=== PATIENT | male | born 1975 | race Caucasian/White ===

== ENCOUNTER → 2021-05-13 | Outpatient (CLI) | payer OTHER ==
--- NOTE | 2021-05-13 15:52 | Diagnostic Imaging Report ---
PROCEDURE: CT abdomen and pelvis without contrast. TECHNIQUE: Multiple contiguous axial images were obtained through the abdomen and pelvis without the use of intravenous contrast. Auto Exposure Controls were utilized during the CT exam to meet ALARA standards for radiation dose reduction. INDICATION: Cirrhosis and ascites. COMPARISON: No prior studies are available for comparison. There is a small left pleural effusion. The liver demonstrates a nodular contour suggestive of cirrhosis. There is significant heterogeneity to the liver parenchyma. There is an area of low density in the anterior portion of the right lobe. Underlying mass cannot be entirely excluded. Gallbladder is unremarkable. There is no biliary ductal dilatation. The pancreas is unremarkable. Spleen is mildly enlarged at 14.4 cm. No adrenal mass is detected. Kidneys are unremarkable. Aorta is nonaneurysmal. There is perihepatic and perisplenic ascites. There appears to be some infiltration of the mesentery. There are shoddy lymph nodes in the central retroperitoneum. Large pelvic ascites is noted. Bladder is decompressed. Prostate is unremarkable. There is a fat-containing right inguinal hernia. Fluid extends into an umbilical hernia as well. IMPRESSION: 1. Small left pleural effusion. 2. Findings consistent with cirrhosis and probable portal hypertension with moderate to large abdominal and pelvic ascites. There is significant heterogeneity to the liver parenchyma, an underlying liver mass cannot be entirely excluded. Liver MRI would be useful for further evaluation. Fluid containing umbilical hernia. Fat-containing right inguinal hernia. Dictated by: Dictated on workstation # [id number]
== END ==
LOC: RAD 14:45
PROVIDERS: ATTEND Internal Medicine
DX: J90 Pleural effusion, not elsewhere classified (principal); K70.31 Alcoholic cirrhosis of liver with ascites
CPT/HCPCS: 74176

== ENCOUNTER → 2021-05-29 | Outpatient (CLI) | payer OTHER ==
[~2021-05-29] MED LIST: CHLO25CA10 PO; GADOBUTROL 15 MMOL/15 ML (GADAVIST) VIAL IV ONE; NICO-685 TD; OXYC10TA7 PO
--- NOTE | 2021-05-29 17:08 | Diagnostic Imaging Report ---
EXAMINATION: MRI of the abdomen with and without contrast. TECHNIQUE: Multiplanar, multisequence MR images of the abdomen were obtained with and without intravenous contrast. HISTORY: ABN CT OF LIVER COMPARISON: None available. FINDINGS: Liver surface is nodular consistent with cirrhosis. No arterially enhancing lesions are seen to indicate hepatocellular carcinoma. Portal vein is patent. There is no hepatic steatosis. The gallbladder is normal. There is no biliary ductal dilation. Pancreas is normal. The pancreatic duct is normal. Spleen is mildly enlarged. There are collaterals in the left upper quadrant. Adrenal glands are normal. There is a moderate amount of ascites. The kidneys are normal. There is no hydronephrosis. Visualized bowel is normal. No lymphadenopathy is seen. Lung bases are clear. No osseous lesions are seen. IMPRESSION: 1. Cirrhotic liver without suspicious lesion. 2. Portal hypertension as evidenced by moderate ascites and mild splenomegaly. Dictated by: Dictated on workstation # [id number]
== END ==
LOC: RAD 14:45
PROVIDERS: ATTEND Internal Medicine
DX: K74.60 Unspecified cirrhosis of liver (principal); K76.6 Portal hypertension; R16.1 Splenomegaly, not elsewhere classified
CPT/HCPCS: 74183

== ENCOUNTER 2021-05-31 12:56 | Emergency (ER) | payer OTHER ==
[~2021-05-31] VITALS: Ht 177 cm; Wt 122.0 kg
[2021-05-31] MEDS ORDERED: morphine INJ 10 MG/ML 1ML (SYR OR VIAL) IVP STA (13:02)
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
[2021-05-31] MEDS ORDERED: NS 100 ML (IVPB) BAG IV ONE (13:15)
[2021-05-31] MEDS ORDERED: HOLD METFORMIN - RECEIVED CONTRAST 20 ML VIAL IV SCH (13:15)
[2021-05-31] MEDS ORDERED: IOHEXOL 350 MG/ML 100 ML (OMNIPAQUE 350) VIAL IV ONE (13:15)
[2021-05-31 13:30] LABS: HEMATOCRIT 30 % (40-54); HEMOGLOBIN 9.9 g/dL (13.3-17.7); MEAN CORPUSCULAR HEMOGLOBIN 30 pg (25-34); MEAN CORPUSCULAR HGB CONC 34 g/dL (32-36); MEAN CORPUSCULAR VOLUME 90 fL (80-99); MEAN PLATELET VOLUME 10.2 fL (9.0-12.2); PLATELET COUNT 124 10^3/uL (130-400)
[2021-05-31 13:45] LABS: ALBUMIN 2.3 GM/DL (3.2-4.5); CHLORIDE 105 MMOL/L (98-107); POTASSIUM 3.6 MMOL/L (3.6-5.0); SODIUM 134 MMOL/L (135-145)
[2021-05-31 13:47] LABS: CALCIUM 7.2 MG/DL (8.5-10.1)
[2021-05-31 13:48] LABS: GLUCOSE 119 MG/DL (70-105); TOTAL PROTEIN 8.1 GM/DL (6.4-8.2)
[2021-05-31 13:49] LABS: CARBON DIOXIDE 19 MMOL/L (21-32)
[2021-05-31 13:50] LABS: BILIRUBIN,TOTAL 2.5 MG/DL (0.1-1.0)
[2021-05-31 13:52] LABS: ALKALINE PHOSPHATASE 165 U/L (40-136); CREATININE SERUM 0.82 MG/DL (0.60-1.30); GFR ESTIMATED > 60
[2021-05-31 13:53] LABS: BILIRUBIN,DIRECT 1.4 MG/DL (0.0-0.3); BILIRUBIN,INDIRECT 1.1 MG/DL; BUN/CREATININE RATIO 7
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
[2021-05-31 13:55] LABS: ALANINE AMINOTRANSFERASE 27 U/L (0-55)
[2021-05-31] MEDS ORDERED: HYDROmorphone 2 MG/ML VIAL (DILAUDID) IV ONE ×2 (14:00→14:45)
--- NOTE | 2021-05-31 14:10 | Diagnostic Imaging Report ---
PROCEDURE: CT head and CT cervical spine without contrast. TECHNIQUE: Multiple contiguous axial images were obtained through the brain and cervical spine without the use of intravenous contrast. Sagittal and coronal reformations through the cervical spine were then performed. Auto Exposure Controls were utilized during the CT exam to meet ALARA standards for radiation dose reduction. INDICATION: Trauma There are no prior studies available for comparison. CT HEAD: There is no mass, shift of the midline or hemorrhage to suggest an acute intracranial abnormality. The ventricles are not abnormally dilated. There is cortical atrophy. The degree of atrophy is somewhat greater than expected for patient's age but not necessarily abnormal. The bone windows show no evidence for fracture or for destructive lesion. The orbits are symmetrical and within normal limits. The sinuses are generally clear. IMPRESSION: 1. There is no evidence acute intracranial abnormality. 2. If clinical concern regarding an underlying abnormality persists, MRI would be recommended for further study. CT CERVICAL SPINE: The reconstructed parasagittal images show straightening of the cervical spine. This may be secondary to muscle spasm and/or positioning. The intervertebral spaces are fairly well maintained. There is no evidence for high-grade central stenosis. There is no fracture or acute bony abnormality appreciated. There is no sign of retropharyngeal edema. The thyroid gland is partially obscured by streak artifact. Images through the lung apices do show that there is a large pleural effusion on the left. This would correspond to finding of the chest exam performed prior to the study. IMPRESSION: 1. There is no acute bony abnormality of cervical spine. 2. There is a large left pleural effusion. Dictated by: Dictated on workstation # [id number]
--- NOTE | 2021-05-31 14:20 | Diagnostic Imaging Report ---
PROCEDURE: CT chest, abdomen, and pelvis with contrast. TECHNIQUE: Multiple contiguous axial images were obtained through the chest, abdomen, and pelvis after the administration of intravenous contrast. Auto Exposure Controls were utilized during the CT exam to meet ALARA standards for radiation dose reduction. INDICATION: Trauma. FINDINGS: There is a left basal consolidation and moderately large left pleural effusion. Right lung is clear. There is no pneumothorax. The thoracic aorta is normal caliber without evidence of dissection. There is no evidence of mediastinal hematoma. No pathologically enlarged adenopathy in the chest. There is hepatomegaly with fatty infiltration of the liver. There is moderate abdominal ascites. Spleen is grossly normal. Aorta is nonaneurysmal. Kidneys are normal. The aorta is nonaneurysmal. The bowel gas pattern is nonspecific. There is a fluid-containing periumbilical hernia. Bladder is normal. There is no pelvic mass, adenopathy or free fluid. The osseous structures are unremarkable. IMPRESSION: Left basal consolidation and moderate left pleural effusion. This is increased slightly since prior examination from 05/13/2021. Cirrhotic appearance of liver with moderate abdominal ascites presumably reflecting portal venous hypertension. No other acute abnormality in the abdomen or pelvis. Dictated by: Dictated on workstation # [id number]
[2021-05-31 14:31] LABS: BILIRUBIN,URINE NEGATIVE (NEGATIVE); CLARITY,URINE CLEAR; COLOR,URINE YELLOW; GLUCOSE, URINE (UA) NEGATIVE (NEGATIVE); KETONES,URINE NEGATIVE (NEGATIVE); LEUKOCYTE ESTERASE ,URINE NEGATIVE (NEGATIVE); NITRITE,URINE NEGATIVE (NEGATIVE); PH,URINE 6.5 (5-9); PROTEIN,URINE NEGATIVE (NEGATIVE)
[2021-05-31 14:31] LABS: PROTHROMBIN TIME PATIENT 22.8 SEC (12.2-14.7)
[2021-05-31 14:37] LABS: BACTERIA,URINE NEGATIVE /HPF
[2021-05-31 14:43] LABS: AMPHETAMINE SCREEN, URINE NEGATIVE (NEGATIVE); BARBITURATE SCREEN URINE NEGATIVE (NEGATIVE); BENZODIAZEPINES SCREEN URINE NEGATIVE (NEGATIVE); CANNABINOID SCREEN, URINE NEGATIVE (NEGATIVE); COCAINE SCREEN URINE NEGATIVE (NEGATIVE); METHADONE STAT NEGATIVE (NEGATIVE); METHAMPHETAMINE SCREEN URINE S NEGATIVE (NEGATIVE); OPIATE SCREEN URINE POSITIVE (NEGATIVE); OXYCODONE STAT NEGATIVE (NEGATIVE); PROPOXYPHENE STAT NEGATIVE (NEGATIVE); TRICYCLIC ANTIDEPRESSANTS SCRE NEGATIVE (NEGATIVE)
[2021-05-31] MEDS ORDERED: HYDROmorphone 2 MG/ML VIAL (DILAUDID) ONE (14:48)
--- NOTE | 2021-05-31 15:19 | Diagnostic Imaging Report ---
INDICATION: Leg pain, hematoma. EXAMINATION: Right tibia and fibula at 2:51 p.m. Single AP view of the right tibia and fibula and lateral view of the proximal half of the right tibia to fibula were obtained. COMPARISON: There is no prior study available for comparison. FINDINGS: The lateral view does show that there is soft tissue edema along the anterior aspect of the proximal tibia. This area measures approximately 1.9 x 6.1 cm in maximum AP and longitudinal dimensions. This may be secondary to hematoma formation given the patient's history of recent trauma. If further imaging is desired, then ultrasound would be recommended. There is no fracture or acute bony I identified. There is a well-circumscribed bony excrescence along the anterior aspect of the proximal tibia. This may be a sequela of prior trauma. There is moderate degenerative disease of the knee and ankle joints. IMPRESSION: 1. There is soft tissue edema along the anterior aspect of the proximal tibia. There may be an underlying hematoma in this area. Additional considerations as above. 2. There is no acute bony abnormality noted. Dictated by: Dictated on workstation # [id number]
[2021-05-31] MEDS ORDERED: CHLO25CA10 PO (15:32)
[2021-05-31] MEDS ORDERED: OXYC10TA7 PO (15:32)
[2021-05-31] MEDS ORDERED: NICO-685 TD (15:34)
[2021-05-31 15:40] VITALS: BP 111/79
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
== END 2021-05-31 15:40 | disposition home or self-care (01) ==
LOC: EDUNIT# 12:56 → ER 12:57
DX: S22.39XA Fracture of one rib, unspecified side, initial encounter for closed fracture (principal); F10.129 Alcohol abuse with intoxication, unspecified; J90 Pleural effusion, not elsewhere classified; R18.8 Other ascites; J44.9 Chronic obstructive pulmonary disease, unspecified; V89.2XXA Person injured in unspecified motor-vehicle accident, traffic, initial encounter
CPT/HCPCS: 70450; 71045; 71260; 72125; 73590; 74177; 80048; 80076; 80306; 81000; 85027; 85610; 99285; G0480; 36415; 80320

== ENCOUNTER 2021-08-24 18:11 | Inpatient (IN) | payer OTHER ==
[~2021-08-24] VITALS: Ht 178 cm; Wt 120.2 kg
[~2021-08-24 18:11] MED LIST changes: -GADOBUTROL 15 MMOL/15 ML (GADAVIST) VIAL IV ONE
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
[2021-08-24 18:41] LABS: ABG OXYGEN SATURATION 95 % (94-100); ABG PCO2 29 MMHG (35-45); ABG PO2 75 MMHG (79-93); ABG TCO2 23.6 MMOL/L (21.0-31.0); ALLENS TEST YES-POS; INSPIRED O2 ROOM AIR; PATIENT TEMP 37.5; VENTILATOR NO
[2021-08-24 19:11] LABS: HEMOGLOBIN 11.1 g/dL (13.3-17.7)
[2021-08-24 19:13] LABS: BASOPHILS # (AUTO) 0.1 10^3/uL (0.0-0.1); BASOPHILS % (AUTO) 2 % (0-10); EOSINOPHILS % (AUTO) 1 % (0-10); HEMATOCRIT 31 % (40-54); LYMPHOCYTES # (AUTO) 0.8 10^3/uL (1.0-4.0); LYMPHOCYTES % (AUTO) 12 % (12-44); MEAN CORPUSCULAR HEMOGLOBIN 32 pg (25-34); MEAN CORPUSCULAR HGB CONC 36 g/dL (32-36); MEAN CORPUSCULAR VOLUME 89 fL (80-99); MEAN PLATELET VOLUME 10.9 fL (9.0-12.2); MONOCYTES # (AUTO) 0.8 10^3/uL (0.0-1.0); MONOCYTES % (AUTO) 12 % (0-12); NEUTROPHILS # (AUTO) 4.9 10^3/uL (1.8-7.8); NEUTROPHILS % (AUTO) 74 % (42-75); PLATELET COUNT 66 10^3/uL (130-400); WHITE BLOOD COUNT 6.6 10^3/uL (4.3-11.0)
[2021-08-24 19:17] LABS: ALBUMIN 2.5 GM/DL (3.2-4.5); CHLORIDE 103 MMOL/L (98-107); POTASSIUM 3.4 MMOL/L (3.6-5.0); SODIUM 136 MMOL/L (135-145)
[2021-08-24 19:18] LABS: CALCIUM 7.9 MG/DL (8.5-10.1)
[2021-08-24 19:19] LABS: AMMONIA 85 UMOL/L (11-32); AMYLASE 67 U/L (25-125)
[2021-08-24 19:20] LABS: GLUCOSE 102 MG/DL (70-105); TOTAL PROTEIN 8.9 GM/DL (6.4-8.2)
[2021-08-24 19:21] LABS: BILIRUBIN,TOTAL 7.6 MG/DL (0.1-1.0); CARBON DIOXIDE 20 MMOL/L (21-32)
[2021-08-24 19:23] LABS: ALKALINE PHOSPHATASE 265 U/L (40-136); CREATININE SERUM 0.94 MG/DL (0.60-1.30); GFR ESTIMATED 86
[2021-08-24 19:25] LABS: BUN/CREATININE RATIO 6
[2021-08-24 19:26] LABS: ALANINE AMINOTRANSFERASE 21 U/L (0-55)
[2021-08-24 19:27] LABS: CREATINE KINASE 116 U/L (30-200); LIPASE 125 U/L (8-78)
[2021-08-24 19:32] LABS: ERYTHROCYTE SEDIMENTATION RATE 50 MM/HR (0-15); FIBRIN DEGRADATION PRODUCTS 11.46 UG/ML (0.00-0.49); PROTHROMBIN TIME PATIENT 22.8 SEC (12.2-14.7)
--- NOTE | 2021-08-24 19:32 | Diagnostic Imaging Report ---
INDICATION: Worsening shortness of breath. COMPARISON: Chest x-ray performed 05/31/2021. FINDINGS: A moderate to large left pleural effusion is again noted. While substantial, it is slightly decreased in volume from the prior. There is no pneumothorax. Heart has at least mildly enlarged and there is prominence of the central pulmonary vascularity. On the left it is obscured by the pleural fluid but on the right clearly dilated. The right lung and pleural space, however, are clear. IMPRESSION: Moderate to large left pleural effusion with only portions of the left upper lobe aerated. Pleural fluid volume slightly diminished from prior; however, increased vascular congestion and likely increased cardiomegaly. Dictated by: Dictated on workstation # [id number]
[2021-08-24 19:34] LABS: CREATINE KINASE MB 2.5 NG/ML (<6.6)
[2021-08-24 19:48] LABS: TSH (THYROID ANALYZER) 1.58 UIU/ML (0.35-4.94)
[2021-08-24] MEDS: MAGNESIUM 1 GM/100 ML IVPB 100 ML IV SCH ×2 (20:48→23:59)
[2021-08-24 20:55] LABS: CLARITY,URINE CLEAR; COLOR,URINE AMBER; GLUCOSE, URINE (UA) NEGATIVE (NEGATIVE); KETONES,URINE 1+ (NEGATIVE); LEUKOCYTE ESTERASE ,URINE NEGATIVE (NEGATIVE); NITRITE,URINE POSITIVE (NEGATIVE); PROTEIN,URINE 1+ (NEGATIVE)
[2021-08-24 21:13] LABS: AMPHETAMINE SCREEN, URINE NEGATIVE (NEGATIVE); BARBITURATE SCREEN URINE NEGATIVE (NEGATIVE); BENZODIAZEPINES SCREEN URINE POSITIVE (NEGATIVE); CANNABINOID SCREEN, URINE NEGATIVE (NEGATIVE); COCAINE SCREEN URINE NEGATIVE (NEGATIVE); METHADONE STAT NEGATIVE (NEGATIVE); METHAMPHETAMINE SCREEN URINE S NEGATIVE (NEGATIVE); OPIATE SCREEN URINE POSITIVE (NEGATIVE); OXYCODONE STAT POSITIVE (NEGATIVE); PROPOXYPHENE STAT NEGATIVE (NEGATIVE); TRICYCLIC ANTIDEPRESSANTS SCRE NEGATIVE (NEGATIVE)
[2021-08-24 21:20] LABS: BILIRUBIN,URINE 3+ (NEGATIVE)
[2021-08-24 21:24] LABS: WBC,URINE 0-2 /HPF
[2021-08-24 21:25] LABS: AMORPHOUS SEDIMENT,UR RARE AMOR URATES /LPF; BACTERIA,URINE TRACE /HPF
[2021-08-24] MEDS ORDERED: CATHETER FLUSH 10 ML SYR IV PRN (22:00)
[2021-08-24] MEDS ORDERED: D5 1/2 NS 1000 ML IV SOLUTION 1,000 ML IV PRN (22:15)
[2021-08-24] MEDS ORDERED: ONDANSETRON 4 MG (ZOFRAN) ORAL DISSOLVE TAB SL PRN (22:15)
[2021-08-24] MEDS ORDERED: LORazepam INJ 2 MG/ML (ATIVAN) VIAL IM/IV PRN (22:15)
[2021-08-24] MEDS ORDERED: ONDANSETRON 4 MG/2 ML (SDV) Z0FRAN IV PRN (22:15)
[2021-08-24] MEDS ORDERED: SENNA W/DOCUSATE (SENOKOT S) TABLET PO PRN (22:15)
[2021-08-24] MEDS ORDERED: ANTACID SUSP 30 ML UDC (MYLANTA) PO PRN (22:15)
[2021-08-24] MEDS ORDERED: LORazepam INJ 2 MG/ML (ATIVAN) VIAL IV PRN (22:15)
[2021-08-24] MEDS ORDERED: D5 1/2 NS W/KCL 20 MEQ/L 1,000 ML IV SCH (22:15)
[2021-08-24] MEDS ORDERED: 1/2 NS IV SOLUTION 1,000 ML IV PRN (22:15)
[2021-08-24 22:27] VITALS: BP 148/81
[2021-08-24] MEDS: LACTULOSE SYRUP 10GM/15ML (ENULOSE) 30ML UDC PO SCH (22:39)
[2021-08-24] MEDS: CATHETER FLUSH 10 ML SYR IV SCH (22:40)
[2021-08-24] MEDS ORDERED: MAGNESIUM 1 GM/100 ML IVPB 100 ML IV ONE (23:51)
[2021-08-25] VITALS (7 sets, daily range): BP systolic 105–119; BP diastolic 55–76
[2021-08-25] MEDS: LORazepam 1 MG (ATIVAN) TAB PO PRN ×4 (01:12→21:10)
[2021-08-25] MEDS ORDERED: NICOTINE 21 MG (NICODERM) PATCH TD ONE (01:45)
[2021-08-25] MEDS: IBUPROFEN TABLET 200 MG TAB PO PRN ×2 (01:58→06:29)
[2021-08-25 05:49] LABS: HEMATOCRIT 26 % (40-54); HEMOGLOBIN 9.1 g/dL (13.3-17.7); MEAN CORPUSCULAR HGB CONC 36 g/dL (32-36)
[2021-08-25 05:51] LABS: BASOPHILS # (AUTO) 0.1 10^3/uL (0.0-0.1); BASOPHILS % (AUTO) 1 % (0-10); EOSINOPHILS # (AUTO) 0.1 10^3/uL (0.0-0.3); EOSINOPHILS % (AUTO) 2 % (0-10); LYMPHOCYTES # (AUTO) 1.2 10^3/uL (1.0-4.0); LYMPHOCYTES % (AUTO) 18 % (12-44); MEAN CORPUSCULAR HEMOGLOBIN 32 pg (25-34); MEAN CORPUSCULAR VOLUME 90 fL (80-99); MONOCYTES % (AUTO) 15 % (0-12); NEUTROPHILS # (AUTO) 4.1 10^3/uL (1.8-7.8); NEUTROPHILS % (AUTO) 63 % (42-75); PLATELET COUNT 59 10^3/uL (130-400); WHITE BLOOD COUNT 6.4 10^3/uL (4.3-11.0)
[2021-08-25 06:01] LABS: POTASSIUM 3.2 MMOL/L (3.6-5.0)
[2021-08-25 06:03] LABS: CALCIUM 7.5 MG/DL (8.5-10.1)
[2021-08-25 06:07] LABS: CREATININE SERUM 0.87 MG/DL (0.60-1.30)
[2021-08-25 06:09] LABS: MAGNESIUM 1.2 MG/DL (1.6-2.4)
[2021-08-25] MEDS: CATHETER FLUSH 10 ML SYR IV SCH ×3 (06:59→22:25)
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
[2021-08-25] MEDS: LACTULOSE SYRUP 10GM/15ML (ENULOSE) 30ML UDC PO SCH ×4 (08:51→19:41)
[2021-08-25] MEDS: THIAMINE INJECTION 100 MG, FOLIC ACID INJECTION 1 MG, MAGNESIUM SULFATE 2 GM, VITAMIN M... IV SCH ×5 (08:59)
[2021-08-25 10:04] LABS: BILIRUBIN,DIRECT 4.2 MG/DL (0.0-0.3); BILIRUBIN,INDIRECT 2.3 MG/DL; BILIRUBIN,TOTAL 6.5 MG/DL (0.1-1.0); TOTAL PROTEIN 7.2 GM/DL (6.4-8.2)
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
[2021-08-25] MEDS: oxyCODONE/APAP 5/325MG (PERCOCET 5) TABLET PO PRN ×2 (13:40)
--- NOTE | 2021-08-25 13:41 | Diagnostic Imaging Report ---
EXAMINATION: US Abdomen limited. TECHNIQUE: Focused ultrasound was performed in all four quadrants to evaluate for ascites. REASON FOR EXAM: Ascites. COMPARISON: 05/31/2021. FINDINGS: Cbkzjfoa-tl-dptty volume of ascites is seen throughout the abdomen. A site was marked over the left lower quadrant for paracentesis. IMPRESSION: 1. Rtkqrzvv-ke-obnol volume of ascites throughout the abdomen and pelvis. Dictated by: Dictated on workstation # [id number]
--- NOTE | 2021-08-25 14:13 | Diagnostic Imaging Report ---
INDICATION: Pleural effusion. FINDINGS: Sonographic interrogation of the posterior left chest was performed. There is a large left pleural effusion. Marking was provided prior to thoracentesis. IMPRESSION: Large left pleural effusion. Dictated by: Dictated on workstation # [id number]
[2021-08-25] MEDS ORDERED: OXYC5TAB PO (14:15)
[2021-08-25] MEDS ORDERED: LISI20TA26 PO (14:15)
[2021-08-25] MEDS ORDERED: POTA10TA36 PO (14:15)
[2021-08-25] MEDS ORDERED: SPIR100T PO (14:15)
[2021-08-25] MEDS ORDERED: FURO40TA4 PO (14:15)
[2021-08-25] MEDS ORDERED: IBUP-30 PO (14:16)
[2021-08-25] MEDS ORDERED: OMEP20CA18 PO (14:16)
[2021-08-25] MEDS ORDERED: TEMA15CA PO (14:16)
--- NOTE | 2021-08-25 15:43 | Progress Note-Post Operative ---
Post-Operative Progess Note Surgeon (s)/Mixing Technician (s) Surgeon CHRISTINE WONG DO Mixing Technician: none Pre-Operative Diagnosis Left sided pleural effusion Post-Operative Diagnosis same Procedure & Operative Findings Date of Procedure 08/25/21 Procedure Performed/Findings thoracentesis Anesthesia Type Local lidocaine Estimated Blood Loss Estimated blood loss (mL): scant Specimens/Packing Specimens Removed 2250 ml Packin CHRISTINE WONG DO Aug 25, 2021 15:43
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
--- NOTE | 2021-08-25 18:26 | OPERATIVE REPORT ---
DATE OF SERVICE: 08/25/2021 PREOPERATIVE DIAGNOSIS: Left-sided pleural effusion. POSTOPERATIVE DIAGNOSIS: Left-sided pleural effusion. PROCEDURE PERFORMED: Thoracentesis. SURGEON: Jourdan Rai DO. TABBER: None. ANESTHESIA: Local lidocaine. BLOOD LOSS: Scant. FLUIDS: None. SPECIMEN: 2250 mL of pleural effusion. INDICATION FOR PROCEDURE: The patient is a 46-year-old male, who has a pleural effusion as well as he has some ascites. He has previously had this drained. He has been having some shortness of breath and requiring oxygen to keep his pulse ox up needing a thoracentesis. FINDINGS: The patient had a thoracentesis performed left side, which had been marked by the ultrasound. A timeout was performed and everyone agreed with the left side we are doing. PROCEDURE NOTE: After informed consent was obtained, the patient was in the bed in his room. He laid over a table on a pillow. He was then sterilely prepped and draped in a normal fashion. Local lidocaine was used to infiltrate the skin right at the marjan where ultrasound had placed. I then made a stab incision with a #11 blade and then carefully advanced the safety needle along this line directly into the lung just over the top of the rib, gently entered the pleural cavity, got a good flush of fluid and then advanced the catheter, removed the needle and I went in easily. The patient had almost no pain and we then hooked up to vacutainer and got out 2250 mL of serosanguineous fluid. The catheter was removed. Dressing was placed. The patient tolerated the procedure. Sponge, instrument and needle count correct at the end of the case. We will get a chest x-ray tomorrow. The patient stated that was already breathing better at the end of the case. Job ID: [id number] DocumentID: [id number] Dictated Date: 08/25/2021 15:49:08 Rf Manager Date: 08/25/2021 18:26:06 Dictated By: JOURDAN RAI DO
[2021-08-25] MEDS ORDERED: TEMAZEPAM 15 MG (RESTORIL) CAP PO PRN (20:45)
[2021-08-25] MEDS ORDERED: PANTOPRAZOLE 20 MG TABLET (PROTONIX) PO PRN (21:30)
[2021-08-25] MEDS ORDERED: NICOTINE 21 MG (NICODERM) PATCH TD SCH ×2 (22:00)
[2021-08-26 04:47] VITALS: BP 123/72
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
[2021-08-26] MEDS: CATHETER FLUSH 10 ML SYR IV SCH ×2 (05:40→13:03)
[2021-08-26 06:07] LABS: BASOPHILS # (AUTO) 0.1 10^3/uL (0.0-0.1); HEMOGLOBIN 9.2 g/dL (13.3-17.7)
[2021-08-26 06:10] LABS: BASOPHILS % (AUTO) 2 % (0-10); EOSINOPHILS # (AUTO) 0.1 10^3/uL (0.0-0.3); EOSINOPHILS % (AUTO) 2 % (0-10); HEMATOCRIT 26 % (40-54); LYMPHOCYTES % (AUTO) 17 % (12-44); MEAN CORPUSCULAR HEMOGLOBIN 32 pg (25-34); MEAN CORPUSCULAR HGB CONC 35 g/dL (32-36); MEAN CORPUSCULAR VOLUME 91 fL (80-99); MEAN PLATELET VOLUME 10.2 fL (9.0-12.2); MONOCYTES # (AUTO) 0.8 10^3/uL (0.0-1.0); MONOCYTES % (AUTO) 13 % (0-12); NEUTROPHILS # (AUTO) 3.9 10^3/uL (1.8-7.8); NEUTROPHILS % (AUTO) 66 % (42-75); PLATELET COUNT 57 10^3/uL (130-400)
[2021-08-26 06:23] LABS: ALBUMIN 1.8 GM/DL (3.2-4.5); POTASSIUM 3.4 MMOL/L (3.6-5.0)
[2021-08-26 06:24] LABS: CALCIUM 7.5 MG/DL (8.5-10.1)
[2021-08-26 06:25] LABS: TOTAL PROTEIN 6.7 GM/DL (6.4-8.2)
[2021-08-26 06:27] LABS: BILIRUBIN,TOTAL 5.9 MG/DL (0.1-1.0)
[2021-08-26 06:29] LABS: CREATININE SERUM 0.85 MG/DL (0.60-1.30)
[2021-08-26] MEDS ORDERED: KCL 10 MEQ TAB (MICRO K) PO SCH (08:00)
--- NOTE | 2021-08-26 08:36 | Progress Note - Surgery ---
CHARLA JUNIOR 08/26/21 0836: Subjective Date Seen by a Provider: Aug 26, 2021 Time Seen by a Provider: 08:31 Subjective/Events-last exam PT had a thoracentesis yesterday d/t a L pleural effusion. Since the procedure he reports improved shortness of breath. He denies pain at the thoracentesis site. He denies fever, nausea or vomiting. He denies change in the size of his abdomen, which is distended secondary to ascites. The patient denies abdominal pain. Review of Systems General: No Night Sweats, No Malaise HEENT: No Head Aches, No Visual Changes Pulmonary: Cough (smokers cough); No Pleuritic Chest Pain Cardiovascular: No: Chest Pain, Palpitations Gastrointestinal: No: Nausea, Vomiting Genitourinary: No Dysuria, No Frequency Musculoskeletal: No: neck pain, arm pain Neurological: Weakness (in feet); No: Numbness Focused Exam Lactate Level 08/24/21 19:00: Lactic Acid Level 2.40*H Objective Exam Vital Signs Date Time Temp Pulse Resp B/P (MAP) Pulse Ox O2 Delivery O2 Flow Rate FiO2 08/26/21 07:38 96 Room Air 08/26/21 04:47 36.5 102 16 123/72 (89) 99 NIV CPAP 08/25/21 23:59 37.4 98 16 112/76 (88) 96 Room Air 08/25/21 20:59 98 Room Air 08/25/21 20:00 36.7 101 18 105/62 (76) 96 Room Air 08/25/21 16:00 36.8 97 20 118/67 (84) 96 Room Air 08/25/21 12:00 37.5 111 20 119/75 (90) 95 Nasal Cannula 4.00 08/25/21 09:20 Nasal Cannula 3.00 I & O 08/26/21 07:00 Intake Total 1440 ml Balance 1440 ml Capillary Refill : Less Than 3 Seconds General Appearance: No Apparent Distress, Chronically ill, Obese HEENT: Normal ENT Inspection, Pharynx Normal, Moist Mucous Membranes, Scleral Icterus (L), Scleral Icterus (R) Neck: Full Range of Motion, Normal Inspection, Non Tender Respiratory: Chest Non Tender, Lungs Clear, No Accessory Muscle Use, No Respiratory Distress, Decreased Breath Sounds Cardiovascular: Regular Rate, Rhythm, No Edema, No Gallop, No JVD, No Murmur, Normal Peripheral Pulses Peripheral Pulses: 3+ Radial Pulses (R), 3+ Radial Pulses (L) Gastrointestinal: non tender, soft, no organomegaly, no pulsatile mass, distended (abdomen was moderately distended secondary to ascites ), hernia (umbilical hernia ) Extremity: Normal Capillary Refill, Normal Inspection, Normal Range of Motion, Non Tender, No Calf Tenderness, No Pedal Edema Neurologic/Psychiatric: Alert, Oriented x3, No Motor/Sensory Deficits, Normal Mood/Affect Skin: Normal Color, Warm/Dry Lymphatic: No Adenopathy Results Lab Laboratory Tests 08/26/21 05:50: White Blood Count 6.0, Red Blood Count 2.88L, Hemoglobin 9.2L, Hematocrit 26L, Mean Corpuscular Volume 91, Mean Corpuscular Hemoglobin 32, Mean Corpuscular Hemoglobin Concent 35, Red Cell Distribution Width 20.8H, Platelet Count 57L, Mean Platelet Volume 10.2, Immature Granulocyte % (Auto) 0, Neutrophils (%) (Auto) 66, Lymphocytes (%) (Auto) 17, Monocytes (%) (Auto) 13H, Eosinophils (%) (Auto) 2, Basophils (%) (Auto) 2, Neutrophils # (Auto) 3.9, Lymphocytes # (Auto) 1.0, Monocytes # (Auto) 0.8, Eosinophils # (Auto) 0.1, Basophils # (Auto) 0.1, I mmature Granulocyte # (Auto) 0.0, Percent Immature Platelet Fraction 3.1, Sodium Level 135, Potassium Level 3.4L, Chloride Level 105, Carbon Dioxide Level 23, Anion Gap 7, Blood Urea Nitrogen 8, Creatinine 0.85, Estimat Glomerular Filt ration Rate 97, BUN/Creatinine Ratio 9, Glucose Level 100, Calcium Level 7.5L, Corrected Calcium 9.3, Total Bilirubin 5.9H, Aspartate Amino Transf (AST/SGOT) 69H, Alanine Aminotransferase (ALT/SGPT) 15, Alkaline Phosphatase 177H, Total Protein 6.7, Albumin 1.8L Microbiology 08/24/21 Blood Culture - Preliminary, Resulted No growth Assessment/Plan Assessment/Plan Assessment/Plan Assessment: Pleural effusion causing SOB Ascites secondary to cirrhosis of the liver. CHF Jaundice Plan: Continue to follow patients respiratory status. We will repeat chest x-ray to follow his L pleural effusion. At this time we will not consider a paracentesis for his ascites. He is Rxd diuretic therapy, which he is not currently taking at the hospital reportedly. I suggested restarting his diuretic medication, or possibly increasing the dose under the direction of his primary doctor. He understands diuretic therapy will help control his ascites. Encouraged ICS therapy and ambulation. JOURDAN RAI 08/26/21 0915: Subjective Time Seen by a Provider: 08:42 Subjective/Events-last exam Pt seen and examined; sitting in bed, eating breakfast and on not on O2 breathing normally. Review of Systems General: No Night Sweats, No Malaise Pulmonary: Cough (smokers cough); No Pleuritic Chest Pain Cardiovascular: No: Chest Pain, Palpitations Gastrointestinal: No: Nausea, Vomiting Objective Exam General Appearance: No Apparent Distress, Obese HEENT: Moist Mucous Membranes, Scleral Icterus (L), Scleral Icterus (R) Respiratory: Lungs Clear, No Accessory Muscle Use, No Respiratory Distress, Decreased Breath Sounds (left base only) Cardiovascular: Regular Rate, Rhythm, No Murmur Gastrointestinal: non tender, soft, no organomegaly, distended (abdomen was moderately distended secondary to ascites ), hernia (umbilical hernia ) Assessment/Plan Assessment/Plan Assessment/Plan Assessment: Pleural effusion causing SOB Ascites secondary to cirrhosis of the liver. CHF Jaundice Plan: Continue to follow patients respiratory status. We will repeat chest x-ray to follow his L pleural effusion. At this time we will not consider a paracentesis for his ascites. He is Rxd diuretic therapy, which he is not currently taking at the hospital reportedly. I suggested restarting his diuretic medication, or possibly increasing the dose under the direction of his primary doctor. He understands diuretic therapy will help control his ascites. Encouraged ICS therapy and ambulation. Supervisory-Addendum Brief Verification & Attestation Participated in pt care: history, MDM, physical Personally performed: exam, history, MDM, supervision of care Care discussed with: Medical Student Procedures: n/a Verification and Attestation of Medical Student E/M Service A medical student performed and documented this service. I then reviewed and verified all information documented by the medical student and made mod ifications to such information, when appropriate. I personally performed a physical exam, medical decision making and then discussed any differences between the notes and made revisions as necessary to create one note. Jourdan Rai , 08/26/21 , 09:15 CHARLA JUNIOR Aug 26, 2021 08:36 JOURDAN RAI DO Aug 26, 2021 09:15
[2021-08-26 08:41] VITALS: BP 108/66
[2021-08-26] MEDS ORDERED: SPIRONOLACTONE 100 MG (ALDACTONE) TABLET PO SCH (09:00)
[2021-08-26] MEDS ORDERED: lisINopril 20 MG (PRINIVIL) TABLET PO SCH (09:00)
[2021-08-26] MEDS ORDERED: FUROSEMIDE 40 MG (LASIX) TAB PO SCH (09:00)
[2021-08-26] MEDS: LACTULOSE SYRUP 10GM/15ML (ENULOSE) 30ML UDC PO SCH ×2 (09:13→13:03)
[2021-08-26] MEDS: THIAMINE INJECTION 100 MG, FOLIC ACID INJECTION 1 MG, MAGNESIUM SULFATE 2 GM, VITAMIN M... IV SCH ×5 (09:13)
[2021-08-26] MEDS: IBUPROFEN TABLET 200 MG TAB PO PRN (09:21)
--- NOTE | 2021-08-26 10:48 | Diagnostic Imaging Report ---
INDICATION: Post thoracentesis. Frontal chest obtained at 09:30 a.m. and compared 08/24/2021. FINDINGS: There is cardiomegaly. There is central vascular congestion. There is significant improvement in left pleural effusion compared to the prior study with minimal residual. There is no pneumothorax following thoracentesis. IMPRESSION: Significant improvement in left pleural effusion compared to the prior study, with minimal residual. There is no pneumothorax following thoracentesis. Central vascular congestion again noted. Dictated by: Dictated on workstation # [id number]
[2021-08-26] MEDS ORDERED: LEVO750T39 PO (10:58)
[2021-08-26] MEDS ORDERED: POTA10TA36 PO (10:58)
--- NOTE | 2021-08-26 10:58 | Discharge Summary ---
Discharge Summary Hospital Course Was the Problem List Reviewed?: Yes Problems/Dx: (1) Pleural effusion, left Status: Acute (2) Cirrhosis (3) Alcoholism (4) Ascites Status: Acute Hospital Course Date of Admission: Aug 24, 2021 at 19:45 Admission Diagnosis : Family Physician/Provider: Jaxon Jeter MD Date of Discharge: 08/26/21 Discharge Diagnosis: Left-sided pleural effusion status post thoracentesis removing 2250 cc, end-stage liver disease from alcoholism Hospital Course: Hospital course: Pt had an uneventful hospital course, when he was admitted for severe pleural effusion on the left side with ascites and in-stage liver disease due to alcoholism. He continues to drink alcohol at home. Thorocentesis performed by Dr. Rai obtained 2200 CCs. Hypoxia resolved and Pt was deemed stable for d ischarge, alcohol cessation was discussed. Labs and Pending Lab Test: Laboratory Tests 08/26/21 05:50: White Blood Count 6.0, Red Blood Count 2.88L, Hemoglobin 9.2L, Hematocrit 26L, Mean Corpuscular Volume 91, Mean Corpuscular Hemoglobin 32, Mean Corpuscular Hemoglobin Concent 35, Red Cell Distribution Width 20.8H, Platelet Count 57L, Mean Platelet Volume 10.2, Immature Granulocyte % (Auto) 0, Neutrophils (%) (Auto) 66, Lymphocytes (%) (Auto) 17, Monocytes (%) (Auto) 13H, Eosinophils (%) (Auto) 2, Basophils (%) (Auto) 2, Neutrophils # (Auto) 3.9, Lymphocytes # (Auto) 1.0, Monocytes # (Auto) 0.8, Eosinophils # (Auto) 0.1, Basophils # (Auto) 0.1, Immature Granulocyte # (Auto) 0.0, Percent Immature Platelet Fraction 3.1, Sod ium Level 135, Potassium Level 3.4L, Chloride Level 105, Carbon Dioxide Level 23, Anion Gap 7, Blood Urea Nitrogen 8, Creatinine 0.85, Estimat Glomerular Filtration Rate 97, BUN/Creatinine Ratio 9, Glucose Level 100, Calcium Level 7.5L, Corrected Calcium 9.3, Total Bilirubin 5.9H, Aspartate Amino Transf (AST/ SGOT) 69H, Alanine Aminotransferase (ALT/SGPT) 15, Alkaline Phosphatase 177H, Total Protein 6.7, Albumin 1.8L Microbiology 08/24/21 Blood Culture - Preliminary, Resulted No growth Home Meds Active Reported Advil (Ibuprofen) 200 Mg Tablet 400 Mg PO Q6H PRN Omeprazole 20 Mg Capsule.dr 20 Mg PO DAILY PRN Temazepam 15 Mg Capsule 15 Mg PO HS PRN Oxycodone HCl 5 Mg Tablet 5 Mg PO TID PRN Potassium Chloride 10 Meq Tab.er.prt 10 Meq PO DAILY Lisinopril 20 Mg Tablet 20 Mg PO DAILY Aldactone (Spironolactone) 100 Mg Tablet 100 Mg PO DAILY Furosemide 40 Mg Tablet 40 Mg PO DAILY Assessment/Pt Instructions PCP in 1 week Discharge Planning: <30 minutes discharge planning Discharge Instructions Discharge Diet: Low Sodium Diet Activity as Tolerated: Yes Discharge Physical Examination Vital Signs Vital Signs Date Time Temp Pulse Resp B/P (MAP) Pulse Ox O2 Delivery O2 Flow Rate FiO2 08/26/21 08:41 36.7 99 19 108/66 (80) 97 Room Air 08/25/21 12:00 4.00 General Appearance: No Apparent Distress, WD/WN, Chronically ill, Obese Allergies: Coded Allergies: No Known Drug Allergies (Unverified , 05/29/21) Discharge Summary Date of Admission Aug 24, 2021 at 19:45 Date of Discharge Discharge Date: Aug 26, 2021 Admission Diagnosis Assessment: Left-sided pleural effusion in need of thoracentesis Ascites Alcoholic liver disease end-stage Smoker Chronic pain Plan: Supportive care Thoracentesis Paracentesis Monitor labs Discharge Diagnosis (1) Pleural effusion, left Status: Acute (2) Cirrhosis (3) Alcoholism (4) Ascites Status: Acute REECE LUNA DO Aug 26, 2021 10:58
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
[2021-08-26 12:16] VITALS: BP 112/59
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
[2021-08-26] MEDS ORDERED: NICOTINE 21 MG (NICODERM) PATCH TD ONE (21:00)
--- NOTE | 2021-08-27 15:35 | Physician Query Clarification ---
PQ-CHF Specificity Admission Date: Aug 24, 2021 at 19:45 Discharge Date: Aug 26, 2021 at 13:44 The medical record reflects the following clinical scenario: History/Risk Factors: history CHF Clinical Findings: CHF with no further specificity Treatment: PO Lasix Question: Can you further specify the acuity &/or type of CHF per the clinical indicators above? Please document a response in the Progress Notes or Discharge Summary. 1. Acuity: Acute, Chronic or Acute on Chronic 2. Type: Systolic, Diastolic or Systolic & Diastolic 3. Unspecified: CHF cannot be further specified regarding type or acuity 4. Other, with explanation of clinical findings 5. Clinically undetermined, no explanation for clinical findings PHYSICIAN RESPONSE Acuity: Clinically undetermined Type: Clinically undetermined Please remember a lack of response to the above will prompt a phone page by [facility]/ Coding staff. In responding to this query, please exercise your independent professional judgment. The purpose of this communication is to more accurately reflect the complexity of your patients condition. The fact that a question is asked does not imply that any particular answer is desired or expected. Thank you for your timely response to this clarification. Requestors name: Shanelle THIS PHYSICIAN QUERY FORM IS A PERMANENT PART OF THE MEDICAL RECORD SHANELLE LAMBERT Aug 27, 2021 15:35 REECE LUNA DO Aug 27, 2021 20:48
== END 2021-08-26 13:44 | disposition home or self-care (01) | DRG 188 ==
LOC: EDUNIT# 18:11 → ER 18:13 → 4TH 19:45
PROVIDERS: ADMIT Internal Medicine; ATTEND Internal Medicine
PROC: 0W9B3ZZ Drainage of Left Pleural Cavity, Percutaneous Approach (ICD-10-PCS; principal; 2021-08-25)
DX: J90 Pleural effusion, not elsewhere classified (principal); K70.31 Alcoholic cirrhosis of liver with ascites; K70.40 Alcoholic hepatic failure without coma; F10.20 Alcohol dependence, uncomplicated; I50.9 Heart failure, unspecified; J44.9 Chronic obstructive pulmonary disease, unspecified; G47.33 Obstructive sleep apnea (adult) (pediatric); E83.42 Hypomagnesemia; R09.02 Hypoxemia; G89.29 Other chronic pain; M79.672 Pain in left foot; I11.0 Hypertensive heart disease with heart failure; F41.9 Anxiety disorder, unspecified; E66.9 Obesity, unspecified; E88.09 Other disorders of plasma-protein metabolism, not elsewhere classified; Z99.89 Dependence on other enabling machines and devices; F17.210 Nicotine dependence, cigarettes, uncomplicated; Z79.899 Other long term (current) drug therapy; Z79.891 Long term (current) use of opiate analgesic; Z20.822 Contact with and (suspected) exposure to COVID-19; Z68.37 Body mass index [BMI] 37.0-37.9, adult
CPT/HCPCS: 36415; 71045; 76604; 76705; 80048; 80053; 80076; 80306; 80320; 81000; 82140; 82150; 82550; 82553; 82805; 83605; 83690; 83735; 83874; 83880; 84145; 84443; 84484; 85025; 85379; 85610; 85652; 85730; 86141; 87040; 87636; 93005; 93041; 93306

== ENCOUNTER 2022-01-13 06:13 | Inpatient (IN) | payer SELFPAY ==
[~2022-01-13] VITALS: Ht 175.3 cm; Wt 112.8 kg
[2022-01-13] VITALS (9 sets, daily range): BP systolic 106–152; BP diastolic 51–92
[~2022-01-13 06:13] MED LIST changes: +FURO40TA4 PO; +IBUP-30 PO; +LEVO750T39 PO; +LISI20TA26 PO; +OMEP20CA18 PO; +OXYC5TAB PO; +POTA10TA37 PO; +SPIR100T PO; +TEMA15CA PO
[2022-01-13] MEDS ORDERED: ONDANSETRON 4 MG/2 ML (SDV) Z0FRAN ONE ×2 (06:38→12:22)
[2022-01-13 06:42] LABS: BASOPHILS % (AUTO) 0 % (0-10); MONOCYTES # (AUTO) 0.8 10^3/uL (0.0-1.0)
[2022-01-13 06:44] LABS: EOSINOPHILS % (AUTO) 0 % (0-10); HEMATOCRIT 33 % (40-54); HEMOGLOBIN 11.5 g/dL (13.3-17.7); LYMPHOCYTES # (AUTO) 0.3 10^3/uL (1.0-4.0); LYMPHOCYTES % (AUTO) 3 % (12-44); MEAN CORPUSCULAR HEMOGLOBIN 32 pg (25-34); MEAN CORPUSCULAR HGB CONC 35 g/dL (32-36); MEAN CORPUSCULAR VOLUME 90 fL (80-99); MONOCYTES % (AUTO) 7 % (0-12); NEUTROPHILS # (AUTO) 9.3 10^3/uL (1.8-7.8); NEUTROPHILS % (AUTO) 89 % (42-75); PLATELET COUNT 100 10^3/uL (130-400); WHITE BLOOD COUNT 10.5 10^3/uL (4.3-11.0)
[2022-01-13 06:45] LABS: ALBUMIN 3.1 GM/DL (3.2-4.5)
[2022-01-13] MEDS ORDERED: ONDANSETRON 4 MG/2 ML (SDV) Z0FRAN IVP ONE ×2 (06:45→08:00)
[2022-01-13 06:46] LABS: CHLORIDE 95 MMOL/L (98-107); POTASSIUM 3.3 MMOL/L (3.6-5.0); SODIUM 128 MMOL/L (135-145)
[2022-01-13 06:47] LABS: CALCIUM 9.2 MG/DL (8.5-10.1); INR 1.7 (0.8-1.4); PROTHROMBIN TIME PATIENT 20.7 SEC (12.2-14.7)
[2022-01-13 06:48] LABS: GLUCOSE 144 MG/DL (70-105); TOTAL PROTEIN 9.1 GM/DL (6.4-8.2)
[2022-01-13 06:49] LABS: CARBON DIOXIDE 21 MMOL/L (21-32)
[2022-01-13 06:50] LABS: BILIRUBIN,TOTAL 6.1 MG/DL (0.1-1.0)
[2022-01-13 06:51] LABS: ALKALINE PHOSPHATASE 204 U/L (40-136)
[2022-01-13 06:52] LABS: CREATININE SERUM 0.89 MG/DL (0.60-1.30); GFR ESTIMATED 106
[2022-01-13 06:53] LABS: BUN/CREATININE RATIO 9
[2022-01-13 06:55] LABS: ALANINE AMINOTRANSFERASE 24 U/L (0-55); MAGNESIUM 1.2 MG/DL (1.6-2.4)
[2022-01-13 06:56] LABS: LIPASE 60 U/L (8-78)
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
[2022-01-13] MEDS ORDERED: MAGNESIUM 1 GM/100 ML IVPB 100 ML IV ONE (07:15)
[2022-01-13 07:34] LABS: ANISOCYTOSIS SLIGHT; BAND NEUTROPHILS 0 %; BASOPHILS % (MANUAL) 0 %; EOSINOPHILS % (MANUAL) 0 %; LYMPHOCYTES % (MANUAL) 2 %; MONOCYTES % (MANUAL) 1 %; NEUTROPHILS % (MANUAL) 97 %
[2022-01-13] MEDS ORDERED: fentaNYL INJ 100 MCG/2 ML AMP IVP ONE ×2 (08:00→14:15)
[2022-01-13] MEDS ORDERED: FAMOTIDINE 20MG/2ML IV (PEPCID) IVP ONE (08:00)
[2022-01-13] MEDS ORDERED: morphine INJ 10 MG/ML 1ML (SYR OR VIAL) IVP STA (08:36)
--- NOTE | 2022-01-13 09:00 | Diagnostic Imaging Report ---
INDICATION: NG tube placement. Frontal chest obtained at 8:51 a.m. compared to 08/26/2021. FINDINGS: Heart is normal in size. There is a small amount of pleural fluid on the left side. Right infrahilar infiltrate and/or scarring appears similar to the prior study. There is no pneumothorax. NG tube is visualized, its tip is not well seen due to technique. Consider abdominal film for further evaluation. IMPRESSION: NG tube is visualized but its tip is not well seen, consider abdominal film for further evaluation. Small left pleural effusion. There is persistent infiltrate or scarring in the right medial base which is similar to the prior study. Dictated by: Dictated on workstation # [id number]
[2022-01-13] MEDS ORDERED: HOLD METFORMIN - RECEIVED CONTRAST 20 ML VIAL IV SCH (09:15)
[2022-01-13] MEDS ORDERED: NS 100 ML (IVPB) BAG IV ONE (09:15)
[2022-01-13] MEDS ORDERED: IOHEXOL 350 MG/ML 100 ML (OMNIPAQUE 350) VIAL IV ONE (09:15)
[2022-01-13] MEDS ORDERED: DIATRIZOATE MEGLUM/SODIUM 37% 120 ML (GASTROGRAFIN) NG ONE (09:15)
--- NOTE | 2022-01-13 11:02 | Diagnostic Imaging Report ---
EXAMINATION: CT abdomen and pelvis with intravenous contrast. TECHNIQUE: Multiple contiguous axial images were obtained through the abdomen and pelvis after the uneventful administration of intravenous contrast. All CT scans use one or more of the following dose optimizing techniques: Automated exposure control, MA and/or KvP adjustment based on patient size and exam type or iterative reconstruction. HISTORY: Abdominal pain and distention. COMPARISON: 05/31/2021. FINDINGS: Limited views of the lower thorax show a small left pleural effusion with overlying atelectasis. A gastric tube is coiled in the stomach with the tip returning into the distal esophagus. Liver is cirrhotic. There is heterogeneous enhancement of the liver, but no discrete lesion is seen. There is no biliary ductal dilation. Gallbladder is normal. Pancreas is normal. Spleen is normal. Adrenal glands are normal. Simple cyst is present in the left kidney. No suspicious renal lesions. There is no hydronephrosis. Urinary bladder is normal. There is a bowel obstruction with a transition point in the ventral abdominal hernia. There is mesenteric edema of the obstructive bowel. There is a moderate amount of ascites. There are large collaterals in the left abdomen. No free air. There is a fat-containing right inguinal hernia. No abdominal or pelvic lymphadenopathy. Aorta is normal in caliber without aneurysm. There are no suspicious osseous lesions. IMPRESSION: 1. Small bowel obstruction with transition point in the ventral abdominal hernia. There is mesenteric stranding in the obstructed segment. 2. Cirrhotic liver with portal hypertension and extensive collaterals in the left abdomen and moderate-volume ascites. Dictated by: Dictated on workstation # [id number]
--- NOTE | 2022-01-13 11:42 | History & Physical-Surgical ---
JAN SHARIF MED STUDENT 01/13/22 1142: History of Present Illness History of Present Illness Reason for visit/HPI Patient is a 47 year old male with a pmh significant for liver cirrhosis secondary to longstanding alcohol consumption and HTN who presented to the ED today with cc of abdominal pain. States the pain started around 1000 yesterday am and came on suddenly and rapidly intensified. States he took 4 shots of alcohol yesterday for the pain. States the pain is bilateral and started on both flanks and radiates around to his umbilicus. Reports taking some laxatives and pepto bismol with no relief of symptoms. Reports minimal nausea and one episode of emesis x 1. Nothing makes the pain worse. Pain medications he's received in the ED have improved the pain. Currently rates the pain at a 4/10. States he tried to go to the bathroom approximately 50 times but was unable to do so. Currently complaining of tenderness of the umbilicus with minimal pain. Date of Admission 01-13-22 Time Seen by a Provider: 11:36 I consulted on this patient on 01/13/22 11:36 Attending Physician Admitting Physician Jaxon Jeter MD Consult Allergies and Home Medications Allergies Coded Allergies: No Known Drug Allergies (Unverified , 05/29/21) Patient Home Medication List Furosemide (Furosemide) 40 Mg Tablet, 40 MG PO DAILY, (Reported) Entered as Reported by: ENMANUEL HEALY on 08/25/21 141 Ibuprofen (Advil) 200 Mg Tablet, 400 MG PO Q6H PRN for PAIN-MILD (1-4), (Rep orted) Entered as Reported by: ENMANUEL HEALY on 08/25/21 141 Levofloxacin (Levofloxacin) 750 Mg Tablet, 750 MG PO DAILY Prescribed by: REECE LUNA on 08/26/21 1058 Lisinopril (Lisinopril) 20 Mg Tablet, 20 MG PO DAILY, (Reported) Entered as Reported by: ENMANUEL HEALY on 08/25/21 141 Omeprazole (Omeprazole) 20 Mg Capsule.dr, 20 MG PO DAILY PRN for HEARTBURN, (Reported) Entered as Reported by: ENMANUEL HEALY on 08/25/21 1416 Oxycodone HCl (Oxycodone HCl) 5 Mg Tablet, 5 MG PO TID PRN for PAIN-SEVERE (8- 10), (Reported) Entered as Reported by: ENMANUEL HEALY on 08/25/21 1415 Potassium Chloride (Potassium Chloride) 10 Meq Tab.er.prt, 10 MEQ PO DAILY Prescribed by: REECE LUNA on 08/26/21 1058 Spironolactone (Aldactone) 100 Mg Tablet, 100 MG PO DAILY, (Reported) Entered as Reported by: ENMANUEL HEALY on 08/25/21 1415 Temazepam (Temazepam) 15 Mg Capsule, 15 MG PO HS PRN for SLEEP, (Reported) Entered as Reported by: ENMANUEL HEALY on 08/25/21 1416 Past Sbwnskj-Zvkbfm-Tpndwz Hx Patient Social History Marrital Status: Employed/Student: unemployed Tobacco Use?: Yes Smoking Status: Current Everyday Smoker (1ppd smoker) Use of E-Cig and/or Vaping dev: No Use of E-Cig and/or Vaping Nikko: Never a User Substance use?: No Substance frequency: Rarely Alcohol Use?: No (none currently. Reports 4 shots of alcohol yesterday) Alcohol type: Hard Liquor Alcohol Frequency: Once in a while Pt feels they are or have been: No Immunizations Up To Date First/Initial COVID19 Vaccinat: none Current Status Advance Directives: No Primary Language: Ethiopian Preferred Spoken Language: Ethiopian Is interpretation needed?: No Implanted or Applied Medical D: None Past Medical History Sleep Apnea Currently Using CPAP: No Currently Using BIPAP: No Hypertension Sexually Transmitted Disease: No HIV/AIDS: No Cirrhosis Chronic Back Pain Are Your Blood Sugars Over 250: No Loss of Vision: Denies Hearing Impairment: Denies Sleep Difficulties, Anxiety Blood Disorders: No Adverse Reaction/Blood Tranf: No Family Medical History Heart Disease, Diabetes Review of Systems Constitutional: No chills, No diaphoresis, No fever; malaise EENTM: No blurred vision, No double vision Respiratory: No cough, No dyspnea on exertion, No short of breath Cardiovascular: No chest pain, No edema, No Hx of Intervention, No palpitations Gastrointestinal: abdominal pain (tenderness to palpation of umbilicus), jaundice, loss of appetite, nausea, vomiting Genitourinary: No decreased output, No discharge Musculoskeletal: No back pain, No joint pain Skin: No change in color, No change in hair/nails, No dryness Psychiatric/Neurological: Denies Anxiety, Denies Depressed All Other Systems Reviewed Negative Unless Noted: Yes Physical Exam Vital Signs Vital Signs - First Documented 01/13/22 06:23 Temp 36.8 Pulse 115 Resp 24 B/P (MAP) 155/100 Pulse Ox 98 O2 Delivery Room Air Capillary Refill : Less Than 3 Seconds Height, Weight, BMI Height: '" Weight: lbs. oz. kg; 36.00 BMI Method: General Appearance: Chronically ill, Mild Distress Eyes: Bilateral Eye Normal Inspection, Bilateral Eye PERRL, Bilateral Eye EOMI HEENT: PERRL/EOMI, Pharynx Normal, Moist Mucous Membranes Neck: Full Range of Motion, Normal Inspection, Non Tender Respiratory: Chest Non Tender, Lungs Clear, Normal Breath Sounds, No Accessory Muscle Use, No Respiratory Distress; No Decreased Breath Sounds Cardiovascular: No Regular Rate, Rhythm; No Edema, Normal Peripheral Pulses, T achycardia Gastrointestinal: Distended, Guarding, Hernia (incarcerated likely strangulated umbilical hernia), Tenderness Rectal: Deferred Back: Normal Inspection, No CVA Tenderness, No Vertebral Tenderness Extremity: Normal Capillary Refill, Normal Inspection, Non Tender, No Calf Tenderness, No Pedal Edema Neurologic/Psychiatric: Alert, Oriented x3, No Motor/Sensory Deficits Skin: Warm/Dry, Jaundice Lymphatic: No Adenopathy Data Review Labs Laboratory Tests 01/13/22 06:21: White Blood Count 10.5, Red Blood Count 3.62L, Hemoglobin 11.5L, Hematocrit 33L, Mean Corpuscular Volume 90, Mean Corpuscular Hemoglobin 32, Mean Corpuscular Hemoglobin Concent 35, Red Cell Distribution Width 17.2H, Platelet Count 100L, Mean Platelet Volume 11.0, Immature Granulocyte % (Auto) 0, Neutrophils (%) (Auto) 89H, Lymphocytes (%) (Auto) 3L, Monocytes (%) (Auto) 7, Eosinophils (%) (Auto) 0, Basophils (%) (Auto) 0, Neutrophils # (Auto) 9.3H, Lymphocytes # (Auto) 0.3L, Monocytes # (Auto) 0.8, Eosinophils # (Auto) 0.0, Basophils # (Auto) 0.0, Immature Granulocyte # (Auto) 0.0, Neutrophils % (Manual) 97, Lymphocytes % (Manual) 2, Monocytes % (Manual) 1, Eosinophils % (Manual) 0, Basophils % (Manual) 0, Band Neutrophils 0, Percent Immature Platelet Fraction 3.0, Anisocytosis SLIGHT, Prothrombin Time 20.7H, INR Comment 1.7H, Sodium Level 128L, Potassium Level 3.3L, Chloride Level 95L, Carbon Dioxide Level 21, Anion Gap 12, Blood Urea Nitrogen 8, Creatinine 0.89, Estimat Glomerular Filtration Rate 106, BUN/Creatinine Ratio 9, Glucose Level 144H, Calcium Level 9.2, Corrected Calcium 9.9, Magnesium Level 1.2L, Total Bilirubin 6.1H, Aspartate Amino Transf (AST/SGOT) 76H, Alanine Aminotransferase (ALT/SGPT) 24, Alkaline P hosphatase 204H, C-Reactive Protein High Sensitivity 0.83H, Total Protein 9.1H, Albumin 3.1L, Lipase 60, Serum Alcohol < 10 01/13/22 11:40: Assessment/Plan Assessment/Plan Admission Status: Inpatient Order (span 2 midnights) Reason for Inpatient Admission: Needs immediate surgery for incarcerated/strangulated umbilical hernia Assessment/Plan Likely incarcerated/strangulated umbilical hernia small bowel obstruction History of liver cirrhosis HTN Patient will be taken to the OR for laparoscopic possible open abdominal surgery to repair incarcerated/strangulated umbilical hernia NPO NG to LUCIO TRAN DO 01/13/22 1206: History of Present Illness History of Present Illness Reason for visit/HPI 47 year old male with liver cirrhosis. Umbilical hernia for about a year. W ears a hernia binder on regular baiss. Started having abodminal pain around umbilicus. Having nausea and emesis. Patient had worsening pain. Took 4 shots of alcohol yesterday. States less pain now. Now a 4/10. after pain medication in er. Abdomen more distended. Ct scan shows small bowel obstruction secondary to umbilical hernia with mesenteric fat stranding around it. Date Seen by a Provider: Jan 13, 2022 Allergies and Home Medications Allergies Coded Allergies: No Known Drug Allergies (Unverified , 05/29/21) Patient Home Medication List Home Medication List Reviewed: Yes Furosemide (Furosemide) 40 Mg Tablet, 40 MG PO DAILY, (Reported) Entered as Reported by: ENMAUNEL HEALY on 08/25/21 0450 Ibuprofen (Advil) 200 Mg Tablet, 400 MG PO Q6H PRN for PAIN-MILD (1-4), (Reported) Entered as Reported by: ENMANUEL HEALY on 08/25/211415 Levofloxacin (Levofloxacin) 750 Mg Tablet, 750 MG PO DAILY Prescribed by: REECE LUNA on 08/26/21 105 Lisinopril (Lisinopril) 20 Mg Tablet, 20 MG PO DAILY, (Reported) Entered as Reported by: ENMANUEL HEALY on 08/25/211414 Omeprazole (Omeprazole) 20 Mg Capsule.dr, 20 MG PO DAILY PRN for HEARTBURN, (Reported) Entered as Reported by: ENMANUEL HEALY on 08/25/211415 Oxycodone HCl (Oxycodone HCl) 5 Mg Tablet, 5 MG PO TID PRN for PAIN-SEVERE (8- 10), (Reported) Entered as Reported by: ENMANUEL HEALY on 08/25/211414 Potassium Chloride (Potassium Chloride) 10 Meq Tab.er.prt, 10 MEQ PO DAILY Prescribed by: REECE LUNA on 08/26/211057 Spironolactone (Aldactone) 100 Mg Tablet, 100 MG PO DAILY, (Reported) Entered as Reported by: ENMANUEL HEALY on 08/25/211414 Temazepam (Temazepam) 15 Mg Capsule, 15 MG PO HS PRN for SLEEP, (Reported) Entered as Reported by: ENMANUEL HEALY on 08/25/211415 Past Hskrzis-Fasnrh-Pcezpw Hx Patient Social History Marrital Status: Employed/Student: unemployed Smoking Status: Current Everyday Smoker (1ppd smoker) Use of E-Cig and/or Vaping Nikko: Never a User Alcohol Use?: Yes (none currently. Reports 4 shots of alcohol yesterday) Family Medical History No Pertinent Family Hx Review of Systems Constitutional: No chills, No diaphoresis EENTM: No blurred vision, No double vision Respiratory: No cough, No dyspnea on exertion, No short of breath Cardiovascular: No chest pain, No edema, No Hx of Intervention, No palpitations Gastrointestinal: abdominal pain (tenderness to palpation of umbilicus), jaundice, loss of appetite, nausea, vomiting Genitourinary: No decreased output, No discharge Musculoskeletal: No back pain, No joint pain Skin: No change in color, No change in hair/nails Psychiatric/Neurological: Denies Anxiety, Denies Depressed, Denies Emotional Problems All Other Systems Reviewed Negative Unless Noted: Yes (Negative excepted noted.) Physical Exam General Appearance: Chronically ill, Mild Distress HEENT: Normal ENT Inspection, Pharynx Normal, Scleral Icterus (L), Scleral Icterus (R) Neck: Normal Inspection, Non Tender Respiratory: Chest Non Tender, No Accessory Muscle Use, No Respiratory Distress Cardiovascular: No Regular Rate, Rhythm; No JVD, Tachycardia Gastrointestinal: Distended, Hernia (incarcerated likely strangulated umbilical hernia), Tenderness (periumbilical) Rectal: Deferred Back: No CVA Tenderness, No Vertebral Tenderness Extremity: Normal Capillary Refill, Normal Inspection Neurologic/Psychiatric: Alert, Oriented x3, No Motor/Sensory Deficits Skin: Warm/Dry, Jaundice, Other (slight sores different areas of body) Lymphatic: No Adenopathy Assessment/Plan Assessment/Plan Admission Diagonsis incarcerated umbilical hernia possibly strangulated. cirrhosis small bowel obstruction due to hernia EtOH use Tobacco use. Admission Status: Inpatient Order (span 2 midnights) Reason for Inpatient Admission: needs emergent surgery and postoperative care. Assessment/Plan incarcerated umbilical hernia possibly strangulated. cirrhosis small bowel obstruction due to hernia EtOH use Tobacco use NPO Ancef preop disucssed risks and benefits of diagnostic laparoscopy possible open all other indicated procedures. likely need some kind of hernia repair and possible resection. he understands he is higher risks due to comorbidities. Supervisory-Addendum Brief Verification & Attestation Participated in pt care: history, MDM, physical Personally performed: exam, history, MDM, supervision of care Care discussed with: Medical Student Procedures: n/a Results interpretation: Verified all documentation Verification and Attestation of Medical Student E/M Service A medical student performed and documented this service in my presence. I reviewed and verified all information documented by the medical student and made modifications to such information, when appropriate. I personally performed the physical exam and medical decision making. Lucio Tanner, Jan 13, 2022,12:08 JAN SHARIF MED STUDENT Jan 13, 2022 11:42 LUCIO TANNER DO Jan 13, 2022 12:06
[2022-01-13 11:46] LABS: CLARITY,URINE CLEAR; COLOR,URINE ORANGE; GLUCOSE, URINE (UA) NEGATIVE (NEGATIVE); KETONES,URINE NEGATIVE (NEGATIVE); LEUKOCYTE ESTERASE ,URINE NEGATIVE (NEGATIVE); NITRITE,URINE NEGATIVE (NEGATIVE); PH,URINE 6.5 (5-9); PROTEIN,URINE TRACE (NEGATIVE)
[2022-01-13 11:55] LABS: BILIRUBIN,URINE 2+ (NEGATIVE)
[2022-01-13 11:56] LABS: BACTERIA,URINE NEGATIVE /HPF
[2022-01-13] MEDS ORDERED: LIDOCAINE/EPI 1%-1:200,000 (XYLOCAINE) 30 ML VIAL ONE (11:57)
[2022-01-13] MEDS ORDERED: ceFAZolin 2 GM IV Premixed 50 ML IV ONE (12:00)
[2022-01-13] MEDS ORDERED: SEVOFLURANE (ULTANE) 15 ML INHAL SOLN ONE ×2 (12:22→14:03)
[2022-01-13] MEDS ORDERED: proPOfol 200 MG/20 ML (DIPRIVAN) VIAL IV ONE (12:22)
[2022-01-13] MEDS ORDERED: LIDOCAINE PF 2% 5 ML (XYLOCAINE) VIAL ONE (12:22)
[2022-01-13] MEDS ORDERED: ROCURONIUM 10 MG/ML 5 ML SYRINGE IV ONE (12:22)
[2022-01-13] MEDS ORDERED: MIDAZOLAM 2 MG/2 ML (VERSED) VIAL ONE (12:23)
[2022-01-13] MEDS ORDERED: fentaNYL INJ 100 MCG/2 ML AMP ONE (12:23)
[2022-01-13] MEDS ORDERED: ceFAZolin INJECTION 0 MG ONE (12:29)
[2022-01-13] MEDS ORDERED: ceFAZolin 2 GM IV Premixed 50 ML ONE (12:31)
--- NOTE | 2022-01-13 12:34 | Consultation - Hospitalist ---
JOSEFINA RIVERA 01/13/22 1234: HPI History of Present Illness: HPI/Chief Complaint CC: Abdominal Pain HPI: Roger Phelps is a 47yoM with PMHx of abdominal, umbilical hernia, Cirrhosis secondary to alcohol consumption, and Hypertension who presented to the ED with abdominal pain for one day. He states he began having pain in his right upper and lower abdomen following consumption of a "Big Mac," that had been sitting out approximately 24 hours, at 1000 on 01/12/22. Nothing has improved his pain. He took 3 oxycodone pills along with 4 shots of alcohol in attempt to deal with the abdominal pain. He endorses that he had pain with even the slightest movement yesterday but waited to seek medical treatment until today. Patient attempted to have a bowel movement but was unable to. He endorses nausea and one episode of vomiting yesterday. He was evaluated in the ED where an NG tube was placed for an attempt at conservative management for a potential small bowel obstruction. He was found to have an incarcerated ventral hernia with small bowel obstruction on CT of the abdomen and will be taken for an emergency exploratory laparotomy by Dr. Izaguirre. The CT scan also demonstrated small ascites and liver cirrhosis with portal hypertension. Dr. Luna was consulted for medical management following surgery as well as cirrhosis management and will follow the patient throughout admission. Source: patient, family, RN/MD, RN notes reviewed, EMS notes reviewed Exam Limitations: no limitations Date Seen 01/13/22 Attending Physician Zhang Izaguirre DO PCP Jaxon Jeter MD Referring Physician Date of Admission 01/13/22 Home Medications & Allergies Home Medications Reviewed patient Home Medication Reconciliation performed by pharmacy medication reconciliations on call pharmacy technician and/or nursing. Patients Allergies have been reviewed. Allergies Allergies Coded Allergies No Known Drug Allergies (Unverified05/29/21) Past Whmcxkr-Oobnmg-Pzjlhk Hx Patient Social History Marrital Status: Employed/Student: unemployed Tobacco Use?: Yes Smoking Status: Current Everyday Smoker (1ppd smoker) Use of E-Cig and/or Vaping dev: No Use of E-Cig and/or Vaping Nikko: Never a User Substance use?: No Substance frequency: Rarely Alcohol Use?: Yes (none currently. Reports 4 shots of alcohol yesterday) Alcohol type: Hard Liquor Alcohol Frequency: Once in a while Pt feels they are or have been: No Immunizations Up To Date First/Initial COVID19 Vaccinat: none Current Status Advance Directives: No Primary Language: Jamaican Preferred Spoken Language: Jamaican Is interpretation needed?: No Implanted or Applied Medical D: None Past Medical History Sleep Apnea Currently Using CPAP: No Currently Using BIPAP: No Hypertension Sexually Transmitted Disease: No HIV/AIDS: No Cirrhosis Chronic Back Pain Are Your Blood Sugars Over 250: No Loss of Vision: Denies Hearing Impairment: Denies Sleep Difficulties, Anxiety Blood Disorders: No Adverse Reaction/Blood Tranf: No Family Medical History No Pertinent Family Hx Review of Systems Constitutional: no symptoms reported; No chills, No diaphoresis EENTM: no symptoms reported Respiratory: no symptoms reported; No cough, No dyspnea on exertion Cardiovascular: no symptoms reported; No chest pain, No palpitations Gastrointestinal: see HPI, abdominal pain (diffusely, but more in RUQ and RLQ), constipation, nausea, vomiting Genitourinary: no symptoms reported Musculoskeletal: no symptoms reported Skin: no symptoms reported Psychiatric/Neurological: No Symptoms Reported Physical Exam Physical Exam Vital Signs Vital Signs - First Documented 01/13/22 06:23 Temp 36.8 Pulse 115 Resp 24 B/P (MAP) 155/100 Pulse Ox 98 O2 Delivery Room Air Capillary Refill : Less Than 3 Seconds Height, Weight, BMI Height: '" Weight: lbs. oz. kg; 36.00 BMI Method: General Appearance: Chronically ill, Mild Distress Eyes: Bilateral Eye Normal Inspection, Bilateral Eye PERRL, Bilateral Eye EOMI HEENT: Normal ENT Inspection, Pharynx Normal, Scleral Icterus (L), Scleral Icterus (R) Neck: Normal Inspection, Non Tender Respiratory: Chest Non Tender, Lungs Clear, Normal Breath Sounds, No Accessory Muscle Use, No Respiratory Distress Cardiovascular: No Regular Rate, Rhythm; No Gallop, No JVD, No Murmur, Tachycardia Gastrointestinal: Distended, Hernia (incarcerated likely strangulated umbilical hernia), Tenderness (periumbilical) Rectal: Deferred Back: No CVA Tenderness, No Vertebral Tenderness Extremity: Normal Capillary Refill, Normal Inspection Neurologic/Psychiatric: Alert, Oriented x3, No Motor/Sensory Deficits, Other (Anxious) Skin: Warm/Dry, Jaundice, Other (slight sores different areas of body) Lymphatic: No Adenopathy Results Results/Procedures Labs Laboratory Tests 01/13/22 06:21 Patient resulted labs reviewed. Imaging: Reviewed Imaging Report Assessment/Plan Assessment and Plan Assess & Plan/Chief Complaint Assessment: Incarcerated Ventral Hernia Small Bowel Obstruction Cirrhosis Portal Hypertension Hypertension Alcohol Use Disorder Plan: Failed conservative management of SBO Emergency laparotomy with Dr. Izaguirre MELD-Na Score: 25; 14-15% 90 day mortality Diagnosis/Problems Diagnosis/Problems (1) Incarcerated ventral hernia Status: Acute (2) Small bowel obstruction Status: Acute (3) Cirrhosis (4) Portal hypertension (5) Alcohol use disorder DEVORA LUNA DO 01/14/22 0540: HPI History of Present Illness: HPI/Chief Complaint CC: Incarcerated ventral hernia HPI: This is a 47yoWM clinic patient of [facility] who has a h/o etohism who is s/p surgical management of incarcerated hernia management. Patient is currently drowsy and his mother is at the bedside. Source: patient, family Exam Limitations: clinical condition Past Kpbzlqt-Hmifcg-Kfpzhq Hx Patient Social History Marrital Status: single Employed/Student: unemployed Smoking Status: Current Everyday Smoker Alcohol Use?: Yes Alcohol type: Beer, Hard Liquor, Wine Alcohol Frequency: Daily Past Medical History Cirrhosis Review of Systems Constitutional: see HPI, dizziness, malaise, weakness EENTM: no symptoms reported Respiratory: no symptoms reported Cardiovascular: no symptoms reported Gastrointestinal: abdominal pain (diffusely, but more in RUQ and RLQ), nausea, vomiting Physical Exam Physical Exam General Appearance: WD/WN, Chronically ill, Mild Distress Eyes: Bilateral Eye Normal Inspection, Bilateral Eye PERRL HEENT: PERRL/EOMI, Normal ENT Inspection, Pharynx Normal Neck: Full Range of Motion, Normal Inspection, Non Tender, Supple, Carotid Bruit Respiratory: Chest Non Tender, Lungs Clear, Normal Breath Sounds, No Accessory Muscle Use, No Respiratory Distress Cardiovascular: Regular Rate, Rhythm, No Edema, No Gallop, No JVD, No Murmur, Normal Peripheral Pulses Gastrointestinal: Normal Bowel Sounds, No Organomegaly, No Pulsatile Mass, Soft, Distended, Tenderness (periumbilical) Back: Normal Inspection, No CVA Tenderness, No Vertebral Tenderness Extremity: Normal Capillary Refill, Normal Inspection, Normal Range of Motion, Non Tender, No Calf Tenderness, No Pedal Edema Neurologic/Psychiatric: Alert, Oriented x3, No Motor/Sensory Deficits, Normal Mood/Affect Skin: Normal Color, Warm/Dry Lymphatic: No Adenopathy Assessment/Plan Assessment and Plan Assess & Plan/Chief Complaint Assessment: Incarcerated ventral hernia status post repair Small bowel obstruction Alcoholic cirrhosis Portal hypertension Alcoholism Plan: Status post repair Monitor for hepatic encephalopathy Supervisory-Addendum Brief Verification & Attestation Participated in pt care: history, MDM, physical Personally performed: exam, history, MDM, supervision of care Care discussed with: Medical Student Procedures: n/a Results interpretation: Verified all documentation Verification and Attestation of Medical Student E/M Service A medical student performed and documented this service in my presence. I reviewed and verified all information documented by the medical student and made modifications to such information, when appropriate. I personally performed the physical exam and medical decision making. Devora Luna, Jan 14, 2022,05:36 JOSEFINA RIVERA Jan 13, 2022 12:34 DEVORA LUNA DO Jan 14, 2022 05:40
[2022-01-13] MEDS ORDERED: LACTATED RINGERS 1,000 ML IV PRN (13:00)
[2022-01-13] MEDS ORDERED: HYDROmorphone 2 MG/ML VIAL (DILAUDID) ONE (13:07)
[2022-01-13] MEDS ORDERED: SUCCINYLCHOLINE INJ 20 MG/1 ML 10 ML VIAL ONE (13:34)
[2022-01-13] MEDS ORDERED: SUGAMMADEX 500 MG/5 ML VIAL (BRIDION) IV ONE (13:42)
--- NOTE | 2022-01-13 13:56 | Progress Note-Post Operative ---
Post-Operative Progess Note Surgeon (s)/Cellophaner (s) Surgeon LUCIO TANNER DO Cellophaner: Dr. Rai Pre-Operative Diagnosis incarcerated umbilical hernia Post-Operative Diagnosis same Procedure & Operative Findings Date of Procedure 01/13/22 Procedure Performed/Findings diagnostic laparoscopy incarcerated umbilical hernia repair. Anesthesia Type general Estimated Blood Loss Estimated blood loss (mL): minimal Specimens/Packing Specimens Removed hernia sac LUCIO TANNER DO Jan 13, 2022 13:56
[2022-01-13] MEDS ORDERED: 1/2 NS IV SOLUTION 1,000 ML IV PRN (14:00)
[2022-01-13] MEDS ORDERED: ANTACID SUSP 30 ML UDC (MYLANTA) PO PRN (14:00)
[2022-01-13] MEDS ORDERED: D5 1/2 NS 1000 ML IV SOLUTION 1,000 ML IV PRN (14:00)
[2022-01-13] MEDS ORDERED: ONDANSETRON 4 MG/2 ML (SDV) Z0FRAN IV PRN (14:00)
[2022-01-13] MEDS ORDERED: LORazepam 1 MG (ATIVAN) TAB PO PRN (14:00)
[2022-01-13] MEDS ORDERED: LORazepam INJ 2 MG/ML (ATIVAN) VIAL IM/IV PRN (14:00)
[2022-01-13] MEDS ORDERED: LORazepam INJ 2 MG/ML (ATIVAN) VIAL IV PRN (14:00)
[2022-01-13] MEDS ORDERED: HYDROcodone/APAP 5 MG/325 MG (LORTAB) TAB PO PRN (14:00)
[2022-01-13] MEDS ORDERED: ONDANSETRON 4 MG (ZOFRAN) ORAL DISSOLVE TAB SL PRN (14:00)
[2022-01-13] MEDS ORDERED: PHENYLEPHRINE 100 MCG/ML 10 ML (ANESTHESIA) SYR ONE (14:03)
[2022-01-13] MEDS ORDERED: ONDANSETRON 4 MG/2 ML (SDV) Z0FRAN IVP PRN (14:15)
[2022-01-13] MEDS ORDERED: HYDROmorphone 2 MG/ML VIAL (DILAUDID) IV ONE (14:15)
[2022-01-13] MEDS: LACTATED RINGERS 1,000 ML IV SCH (16:12)
--- NOTE | 2022-01-13 19:56 | OPERATIVE REPORT ---
DATE OF SERVICE: 01/13/2022 PREOPERATIVE DIAGNOSIS: Incarcerated umbilical hernia. POSTOPERATIVE DIAGNOSIS: Incarcerated umbilical hernia. PROCEDURE: Diagnostic laparoscopy with repair of incarcerated umbilical hernia repair. SURGEON: Lucio Izaguirre DO JUNIOR ESTIMATOR: Dr. Rai, assisted in retraction, dissection and closure. ANESTHESIA: General. ESTIMATED BLOOD LOSS: Minimal. COMPLICATIONS: None. INDICATIONS: The patient is a 47-year-old male who presented to the Emergency Department. He was having some abdominal pain and had some nausea and emesis. He had a CT scan suggesting small bowel obstruction secondary to an incarcerated inguinal hernia. Question if there is some strangulation to the bowel. The patient does have cirrhosis. He understands that he has high risk. He also understands the results of the bowel was strangulated needing further management of small bowel resection possibly. The patient understands all risks and benefits and wishes to proceed. Consent was signed in the chart. DESCRIPTION OF PROCEDURE: The patient was taken to the operating suite, was prepped and draped in sterile fashion. Surgical pause was performed. Local anesthetic was infiltrated in the left upper quadrant and 11 blade scalpel was used to make a small skin incision and cautery used to dissect down to the fascia, which was then scored and opened the muscles were divided and the posterior fascia was then divided and the abdomen was then entered. The balloon trocar was inserted and pneumoperitoneum was achieved. The scope was inserted into the incarcerated bowel that appeared to be dusky was present. He did have thinning of the umbilicus due to the defect and hernia sac; question viability. The #10 blade scalpel was used to make an incision around the umbilicus around the hernia, which cautery was then used to dissect down through the subcutaneous tissues to the hernia sac, which was then opened and the small bowel was visible, which had a purplish discoloration that is starting to appear ischemic. The fascia was then opened where the hernia was opened. Small bowel was then brought through it and freed; the bowel regained its normal color and placed back within the abdomen. The hernia sac and due to the skin thinning and questionable blood supply to the skin. This was excised using cautery. The hernia sac was divided off as well. The bowel was then grasped and brought up and ran both proximally and distally. The obstruction was relieved and this was caused by the hernia. Proximal to the area was dilated. This was improved. Again, the bowel was reinspected and had regained its normal color and did not have any ischemic or concerning features. The fascia was then closed using 1-0 looped PDS. The 6-inch Echo Ventralight mesh was inserted into the abdomen and brought out through the incision. The abdomen was then reinflated. A 5 mm trocar was placed in the left lower quadrant and a 5 mm trocar was placed in the right lower quadrant. The Echo Ventralight mesh was then tacked circumferentially. The balloon was removed. An inner crown was created as well. The abdomen was reinspected. No other pathology noted except for liver had significant cirrhotic appearance. The abdomen was then desufflated, the trocars were removed. The fascial defect of the 12 mm trocar in left upper quadrant was then closed using 0 Vicryl in a [id number] fashion. The skin wounds were irrigated and suctioned. The skin was then closed using patrick. The area was washed and dried and sterile bandages were applied. The patient tolerated the procedure well without any complications, taken to recovery room in stable condition. Job ID: [id number] DocumentID: [id number] Dictated Date: 01/13/2022 17:04:05 Life Skills Consultant Date: 01/13/2022 19:56:41 Dictated By: LUCIO IZAGUIRRE DO
[2022-01-13] MEDS: morphine INJ 4 MG/ML 1 ML (VIAL/SYRINGE) IVP PRN (21:05)
[2022-01-13] MEDS: ceFAZolin 2 GM IV Premixed 50 ML IV SCH (22:30)
[2022-01-14 00:05] VITALS: BP 115/57
[2022-01-14] MEDS: LACTATED RINGERS 1,000 ML IV SCH (00:49)
[2022-01-14] MEDS: morphine INJ 4 MG/ML 1 ML (VIAL/SYRINGE) IVP PRN ×2 (00:51→14:34)
[2022-01-14 03:47] VITALS: BP 116/56
[2022-01-14 05:47] LABS: HEMATOCRIT 29 % (40-54); HEMOGLOBIN 9.7 g/dL (13.3-17.7); MEAN CORPUSCULAR HEMOGLOBIN 31 pg (25-34); MEAN CORPUSCULAR HGB CONC 34 g/dL (32-36); MEAN CORPUSCULAR VOLUME 93 fL (80-99); MEAN PLATELET VOLUME 10.1 fL (9.0-12.2); PLATELET COUNT 89 10^3/uL (130-400); WHITE BLOOD COUNT 9.7 10^3/uL (4.3-11.0)
[2022-01-14 06:02] LABS: ALBUMIN 2.5 GM/DL (3.2-4.5)
[2022-01-14 06:04] LABS: CALCIUM 7.7 MG/DL (8.5-10.1)
[2022-01-14] MEDS: ceFAZolin 2 GM IV Premixed 50 ML IV SCH (06:04)
[2022-01-14 06:05] LABS: TOTAL PROTEIN 7.4 GM/DL (6.4-8.2)
[2022-01-14 06:07] LABS: BILIRUBIN,TOTAL 4.8 MG/DL (0.1-1.0)
[2022-01-14 06:09] LABS: CREATININE SERUM 0.93 MG/DL (0.60-1.30)
[2022-01-14 06:12] LABS: MAGNESIUM 1.2 MG/DL (1.6-2.4)
[2022-01-14 06:41] LABS: INR 1.9 (0.8-1.4); PROTHROMBIN TIME PATIENT 22.6 SEC (12.2-14.7)
--- NOTE | 2022-01-14 07:05 | Progress Note - Surgery ---
JAN SHARIF MED STUDENT 01/14/22 0704: Subjective Date Seen by a Provider: Jan 14, 2022 Time Seen by a Provider: 06:20 Subjective/Events-last exam Patient reports not sleeping overnight due to frequent interruptions. Reports not passing flatus or having a BM overnight. Denies nausea, vomiting, chest pain, SOB, and fevers. Reports abdominal pain that seems generalized throughout and rates the pain a 4-5/10. Patient is also complaining of back pain which is making getting comfortable in bed difficult. Tolerating clears without issue. Is using a pillow to splint abdomen with position changes. Review of Systems General: No Chills, No Night Sweats; Fatigue HEENT: No Head Aches, No Visual Changes Pulmonary: No Dyspnea, No Cough Cardiovascular: No: Chest Pain, Palpitations, Edema Gastrointestinal: Abdominal Pain (generalized, rates a 4-5/10 and describes it as constant dull ache); No: Nausea, Vomiting Genitourinary: No Dysuria, No Frequency Musculoskeletal: back pain (states is chronic); No: neck pain, shoulder pain Neurological: No: Weakness, Numbness, Change in speech, Confusion Objective Exam Vital Signs Date Time Temp Pulse Resp B/P (MAP) Pulse Ox O2 Delivery O2 Flow Rate FiO2 01/14/22 03:47 37.8 110 19 116/56 (76) 92 Room Air 01/14/22 00:05 37.1 114 18 115/57 (76) 93 Nasal Cannula 2.00 01/13/22 19:50 36.5 112 18 106/51 (69) 92 Nasal Cannula 2.00 01/13/22 16:47 36.5 118 20 118/58 (78) 95 Nasal Cannula 2.00 01/13/22 16:46 36.5 118 20 118/58 95 Nasal Cannula 2.00 01/13/22 14:54 Room Air 01/13/22 14:50 37.6 14 140/86 (104) 97 Room Air 01/13/22 14:40 14 137/74 (95) 93 OxyMask 1 01/13/22 14:30 14 152/82 (105) 95 OxyMask 1 01/13/22 14:30 OxyMask 2 01/13/22 14:20 18 147/78 (101) 98 OxyMask 2 01/13/22 14:15 OxyMask 2 01/13/22 14:10 22 113/92 (99) 98 OxyMask 2 01/13/22 14:00 20 108/69 (82) 100 OxyMask 4 01/13/22 13:54 37 19 108/53 (71) 99 OxyMask 6 01/13/22 13:54 OxyMask 6 01/13/22 12:24 141 18 141/80 98 Room Air 01/13/22 07:00 112 22 172/104 96 Room Air I & O 01/14/22 07:00 Intake Total 2350 ml Output Total 435 ml Balance 1915 ml Capillary Refill : Less Than 3 Seconds General Appearance: WD/WN, Chronically ill HEENT: PERRL/EOMI, Pharynx Normal, Scleral Icterus (L), Scleral Icterus (R) Neck: Full Range of Motion, Normal Inspection, Non Tender Respiratory: Chest Non Tender, Lungs Clear, Normal Breath Sounds, No Accessory Muscle Use, No Respiratory Distress; No Crackles, No Rales, No Rhonci, No Wheezing Cardiovascular: Regular Rate, Rhythm, No Edema, No Murmur, Normal Peripheral Pulses Peripheral Pulses: 2+ Dorsalis Pedis (R), 2+ Left Dors-Pedis (L), 2+ Radial P ulses (R), 2+ Radial Pulses (L) Gastrointestinal: abnormal bowel sounds (hypoacitve x 4 quadrants), distended, tenderness (tenderness to palpation worse near umbilicus) Extremity: Normal Capillary Refill, Normal Inspection, Non Tender, No Calf Tenderness, No Pedal Edema Neurologic/Psychiatric: Alert, Oriented x3, No Motor/Sensory Deficits, Normal Mood/Affect Skin: Normal Color, Warm/Dry, Tattoos/Piercings, Other (midline abdominal incision dressed and saturated with sanguinous drainage. Small port site dressings C/D/I Multiple scattered sores over body. ) Lymphatic: No Adenopathy Results Lab Laboratory Tests 01/13/22 11:40: Urine Color ORANGE, Urine Clarity CLEAR, Urine pH 6.5, Urine Specific Allons <=1.005, Urine Protein TRACEH, Urine Glucose (UA) NEGATIVE, Urine Ketones NEGATIVE, Urine Nitrite NEGATIVE, Urine Bilirubin 2+H, Urine Urobilinogen 2.0, Urine Leukocyte Esterase NEGATIVE, Urine RBC (Auto) NEGATIVE, Urine RBC NONE, Urine WBC NONE, Urine Squamous Epithelial Cells NONE, Urine Crystals NONE, Urine Bacteria NEGATIVE, Urine Casts NONE, Urine Mucus NEGATIVE, Urine Culture Indicated NO 01/13/22 18:12: Glucometer 112H 01/13/22 23:37: Glucometer 100 01/14/22 05:40: White Blood Count 9.7, Red Blood Count 3.10L, Hemoglobin 9.7L, Hematocrit 29L, Mean Corpuscular Volume 93, Mean Corpuscular Hemoglobin 31, Mean Corpuscular Hemoglobin Concent 34, Red Cell Distribution Width 17.9H, Platelet Count 89L, Mean Platelet Volume 10.1, Sodium Level 130L, Potassium Level 4.0, Chloride Level 99, Carbon Dioxide Level 19L, Anion Gap 12, Blood Urea Nitrogen 12, Creatinine 0.93, Estimat Glomerular Filtration Rate 102, BUN/Creatinine Ratio 13, Glucose Level 102, Calcium Level 7.7L, Corrected Calcium 8.9, Magnesium Level 1.2L, Total Bilirubin 4.8H, Aspartate Amino Transf (AST/SGOT) 58H, Alanine Aminotransferase (ALT/SGPT) 19, Alkaline Phosphatase 155H, Ammonia 89H, Total Protein 7.4, Albumin 2.5L 01/14/22 06:12: Prothrombin Time 22.6H, INR Comment 1.9H 01/14/22 06:20: Assessment/Plan Assessment/Plan Assessment/Plan S/P Diagnostic laparoscopy with repair of incarcerated umbilical hernia POD #1 cirrhosis mild hyponatremia elevated TBili Anemia EtOH use Tobacco use clears as tolerated, advance slowly wean 02 as tolerated/splint abdomen with pillow when coughing/repositioning Cough and deep breathe q1hr WA IS 5-10 times q1hr WA continue ivf's Encourage ambulation TID and up to chair Not passing gas or having BM yet Plan to discharge to home later today . LUCIO IZAGUIRRE DO 01/14/22 0944: Subjective Subjective/Events-last exam Patient tolerating liquids. Abdominal pain improved compared to yesterday. Still uncomfortable. Wanting food. Denies n/v fever sweats chills shortness of breath or chest pain. Objective Exam General Appearance: No Apparent Distress, WD/WN ( ), Chronically ill HEENT: PERRL/EOMI, Scleral Icterus (L), Scleral Icterus (R) Neck: Normal Inspection, Non Tender Respiratory: Chest Non Tender, No Accessory Muscle Use, No Respiratory Distress Cardiovascular: Regular Rate, Rhythm, No JVD Gastrointestinal: distended (minimal), tenderness (incisional, serous drainage) Neurologic/Psychiatric: Alert, Oriented x3, No Motor/Sensory Deficits, Normal Mood/Affect Skin: Normal Color, Warm/Dry Lymphatic: No Adenopathy Assessment/Plan Assessment/Plan Assessment/Plan S/P Diagnostic laparoscopy with repair of incarcerated umbilical hernia POD #1 cirrhosis mild hyponatremia elevated TBili Anemia EtOH use Tobacco use clears as tolerated, advance slowly wean 02 as tolerated/splint abdomen with pillow when coughing/repositioning Cough and deep breathe q1hr WA IS 5-10 times q1hr WA continue ivf's Encourage ambulation TID and up to chair Not passing gas or having BM yet Plan to discharge to home soon Supervisory-Addendum Brief Verification & Attestation Participated in pt care: history, MDM, physical Personally performed: exam, history, MDM, supervision of care Care discussed with: Medical Student Procedures: n/a Results interpretation: Verified all documentation Verification and Attestation of Medical Student E/M Service A medical student performed and documented this service in my presence. I reviewed and verified all information documented by the medical student and made modifications to such information, when appropriate. I personally performed the physical exam and medical decision making. Lucio Izaguirre, Jan 14, 2022,12:06 JAN SHARIF MED STUDENT Jan 14, 2022 07:04 LUCIO IZAGUIRRE DO Jan 14, 2022 09:44
[2022-01-14 08:16] VITALS: BP 126/68
[2022-01-14] MEDS ORDERED: LORazepam 0.5 MG (ATIVAN) TABLET PO STA (10:56)
--- NOTE | 2022-01-14 11:59 | Anesthesia-General Post-Op ---
General Patient Condition Mental Status/LOC: Same as Preop Cardiovascular: Satisfactory Nausea/Vomiting: Absent Respiratory: Satisfactory Pain: Controlled Complications: Absent Post Op Complications Complications None Follow Up Care/Instructions Patient Instructions None needed. Anesthesia/Patient Condition Patient Condition Patient is doing well, no complaints, stable vital signs, no apparent adverse anesthesia problems. No complications reported per nursing. CHRISTY IQBAL CRNA Jan 14, 2022 11:59
--- NOTE | 2022-01-14 12:00 | Progress Note - Hospitalist ---
JOSEFINA RIVERA 01/14/22 1200: Subjective HPI/CC On Admission Date Seen by Provider: Jan 14, 2022 Time Seen by Provider: 10:00 CC: Incarcerated ventral hernia HPI: This is a 47yoWM clinic patient of [facility] who has a h/o etohism who is s/p surgical management of incarcerated hernia management. Patient is currently drowsy and his mother is at the bedside. Subjective/Events-last exam Patient resting in bed holding pillow to abdomen. Endorsing surgical site pain on the abdomen and pain with mild coughing. Endorses history of smoking and this being his "smoker's cough." Appears anxious and worried about discharge due to pain with transfers. However, patient is ambulating well according to nursing. No new complaints. Review of Systems General: No Chills, No Night Sweats HEENT: No Head Aches, No Visual Changes, No Eye Pain Pulmonary: No Dyspnea; Cough (chronic) Cardiovascular: No: Chest Pain, Palpitations, Orthopnea Gastrointestinal: Abdominal Pain (surgical site pain), Constipation; No: Nausea, Vomiting, Diarrhea Genitourinary: No Dysuria, No Frequency Musculoskeletal: No: leg pain, foot pain Neurological: No: Weakness, Numbness Focused Exam Respiratory: Chest Non Tender, Lungs Clear, Normal Breath Sounds, No Accessory Muscle Use, No Respiratory Distress Cardiovascular: Regular Rate, Rhythm, No Edema, No Gallop, No JVD, No Murmur, Normal Peripheral Pulses Capillary Refill: Less Than 3 Seconds Skin: normal color, warm/dry Objective Exam Vital Signs Vital Signs Date Time Temp Pulse Resp B/P (MAP) Pulse Ox O2 Delivery O2 Flow Rate FiO2 01/14/22 08:16 37.3 106 18 126/68 (87) 94 Nasal Cannula 3.00 Capillary Refill : Less Than 3 Seconds General Appearance: Mild Distress, Obese HEENT: PERRL/EOMI, Pharynx Normal, Moist Mucous Membranes Neck: Full Range of Motion, Normal Inspection, Non Tender, Supple Respiratory: Chest Non Tender, Lungs Clear, Normal Breath Sounds, No Accessory Muscle Use, No Respiratory Distress Cardiovascular: Regular Rate, Rhythm, No Edema, No Gallop, No JVD, No Murmur, Normal Peripheral Pulses Gastrointestinal: Normal Bowel Sounds, Soft; No Guarding, No Hernia, No Rebound; Tenderness (mild at surgical site) Rectal: Deferred Back: Normal Inspection Extremity: Normal Capillary Refill, Normal Inspection, Normal Range of Motion, Non Tender, No Calf Tenderness Neurologic/Psychiatric: Alert, Oriented x3, No Motor/Sensory Deficits, Normal Mood/Affect, communication electronic technician II-XII Norm as Tested, Other (Anxious) Skin: Normal Color, Warm/Dry Lymphatic: No Adenopathy Results/Procedures Lab Laboratory Tests 01/14/22 05:40 Patient resulted labs reviewed. Imaging: Reviewed Imaging Report Assessment/Plan Assessment and Plan Assess & Plan/Chief Complaint Assessment: Incarcerated Ventral Hernia s/p surgery Small Bowel Obstruction s/p surgery Cirrhosis Portal Hypertension Hypertension Alcohol Use Disorder Hyponatremia Hypomagnesemia Thrombocytopenia Plan: POD#1 diagnostic laparoscopy with repair of incarcerated umbilical hernia Clear liquid diet, advance slowly as tolerated DC fluids PT/OT CIWA MELD-Na Score: 25; 14-15% 90 day mortality Mg replacement Diagnosis/Problems Diagnosis/Problems (1) Incarcerated ventral hernia Status: Acute (2) Small bowel obstruction Status: Acute (3) Cirrhosis (4) Portal hypertension (5) Alcohol use disorder (6) Hyponatremia (7) Hypomagnesemia (8) Thrombocytopenia DEVORA CARROLL DO 01/15/22 0553: Subjective Subjective/Events-last exam Pt is doing a lot better Hesitant about going home 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 Izaguirre Review of Systems General: Fatigue, Malaise Objective Exam General Appearance: WD/WN, Anxious, Chronically ill, Mild Distress, Obese Respiratory: Lungs Clear Cardiovascular: Regular Rate, Rhythm Neurologic/Psychiatric: Alert, Oriented x3 Assessment/Plan Assessment and Plan Assess & Plan/Chief Complaint Supportive care Poor prognosis given severity of alcoholism Supervisory-Addendum Brief Verification & Attestation Participated in pt care: history, MDM, physical Personally performed: exam, history, MDM, supervision of care Care discussed with: Medical Student Procedures: n/a Results interpretation: Verified all documentation Verification and Attestation of Medical Student E/M Service A medical student performed and documented this service in my presence. I reviewed and verified all information documented by the medical student and made modifications to such information, when appropriate. I personally performed the physical exam and medical decision making. Devora Carroll, Jan 15, 2022,05:52 JOSEFINA RIVERA Jan 14, 2022 12:00 DEVORA CARROLL DO Jan 15, 2022 05:53
[2022-01-14 12:18] VITALS: BP 126/71
--- NOTE | 2022-01-14 13:19 | Discharge Inst-Simple/Standard ---
Discharge Inst-Standard Patient Instructions/Follow Up Plan of Care/Instructions/FU: 2 Weeks Dmitriy 1-2 weeks with your primary care doctor. Activity as Tolerated: No Discharge Diet: Regular Diet Other Inst to Patient Follow up Appt: Make appointment for 2 week Dmitriy. 1-2 weeks with your primary care doctor. Instructions: No lifting greater than 10 pounds. No strenuous activity. May shower in 24 hours, no tub bath or soaking. Use incentive spirometer at home as directed. No Smoking Skin/Wound Care: Keep incisions clean dry and intact. Change bandage daily and as needed. Symptoms to Report: Appetite Changes, Extremity Discoloration, Numbness/Tingling, Swelling Increased, Bleeding Excessive, Eyesight Changes, Pain Increased, Urine Color Change, Constipation(Persistent), Fever over 101 degree F, Pain/Pressure in chest, Urinating Difficulty, Cough Up/Vomit Blood, Heart Beat Irreg/Pounding, Pain/Pressure in jaw, Vaginal Bleeding Increase, Cramps in feet or legs, Lightheadedness, Pain/Pressure in shoulder, Diarrhea(Persistent), Memory Changes Suddenly, Questions/Concerns, Weight gain consecutive days, Dizziness/Fainting, Nausea/Vomiting, Shortness of Breath, Weight gain over 2 pounds If questions or concerns contact your physician Or seek help at emergency department. LUCIO TANNER DO Jan 14, 2022 13:19
--- NOTE | 2022-01-14 15:26 | Physical Therapy Evaluation ---
PT Evaluation-General Medical Diagnosis Admission Date Jan 13, 2022 at 14:02 Medical Diagnosis: Incarcerated ventral hernia Onset Date: Jan 13, 2022 Therapy Diagnosis Therapy Diagnosis: Weakness, debility Precautions Precautions/Isolations: Standard Precautions Referral Physician: Carly Reason for Referral: Evaluation/Treatment Medical History Pertinent Medical History: HTN Current History Patient presented to ED with significant abdominal pain. Reviewed History: Yes Social History Home: Single Level Current Living Status: Alone Entry Into Home: Stairs With Railing PT Steps Into Home: 4 Prior Prior Level of Function SCALE: Activities may be completed with or without assistive devices. 5-Tcqafkbxic-lppkzkl completes the activity by him/herself with no assistance from a helper. 5-Set-up or Clean-up Assistance-helper sets up or cleans up; patient completes activity. [place] assists only prior to or following the activity. 4-Supervision or Touching Assistance-helper provides verbal cues and/or touching/steadying and/or contact guard assistance as patient completes activity. Assistance may be provided throughout the activity or intermittently. 3-Partial/Moderate Assistance-helper does LESS THAN HALF the effort. [place] lifts, holds or supports trunk or limbs, but provides less than half the effort. 2-Substantial/Maximal Assistance-helper does MORE THAN HALF the effort. [place] lifts or holds trunk or limbs and provides more than half the effort. 4-Vmrjaldpt-mnzdvf does ALL the effort. Patient does none of the effort to complete the activity. Or, the assistance of 2 or more helpers is required for the patient to complete the activity. If activity was not attempted, code reason: 7-Patient Refused. 9-Not Applicable-not attempted and the patient did not perform the activity before the current illness, exacerbation or injury. 10-Not Attempted due to Environmental Limitations-(lack of equipment, weather restraints, etc.). 88-Not Attempted due to Medical Conditions or Safety Concerns. Bed Mobility: 6 Transfers (B,C,W/C): 6 Gait: 6 Stairs: 6 Indoor Mobility (Ambulation): Independent Stairs: Independent Prior Devices Use: None PT Evaluation-Current Subjective Patient presents laying in bed and agrees to participate in therapy. Pt/Family Goals to be independent at home Objective Patient Orientation: Person, Place, Situation Attachments: Oxygen ROM/Strength ROM Lower Extremities WFL Strength Lower Extremities 4/5 strength bilaterally grossly Integumentary/Posture Bowel Incontinence: No Bladder Incontinence: No Neuromuscular (Tone, Coordination, Reflexes) grossly intact Sensory Vision: Functional Hearing: Functional Transfers Lying to Sitting/Side of Bed(Q: 4 Sit to Stand (QC): 4 Chair/Gvd-wr-Imxbs Xfer(QC): 4 Patient required CGA for all transfers. Patient performed all transfers very slowly due to increases in pain. Gait Does the Patient Walk?: Yes Mode of Locomotion: Walk Anticipated Mode of Locomotion: Walk Walk 10 feet (QC): 4 Walk 50 ft with 2 Turns(QC): 4 Walk 150 ft (QC): 4 Distance: 150' Gait Assistive Device: None Comments/Gait Description Patient ambulated with CGA for 150'. Patient reported that once he stood up he has less pain in his abdomen. Wheelchair Training Does the Pt Use a Wheelchair?: No Balance Sitting Static: Normal Sitting Dynamic: Normal Standing Static: Normal Standing Dynamic: Fair Assessment/Needs Patient performed bed mobility and ambulated with therapy today. Patient reported significant abdominal pain when standing up but reported it felt better while he was walking. Patient performed all movements very slowly. Patient was left post tx in his chair with nurse call, phone, and all needs met. Rehab Potential: Fair PT Net Application Support Specialist Goals Residential Goals PT Net Application Support Specialist Goals Time Frame: Jan 24, 2022 Roll Left & Right (QC): 6 Sit to Lying (QC): 6 Lying-Sitting on Side/Bed(QC): 6 Sit to Stand (QC): 6 Chair/Dhs-me-Mokoh Xfer(QC): 6 Toilet Transfer (QC): 6 Does the Patient Walk: Yes Walk 10 feet (QC): 6 Walk 50ft with 2 Turns (QC): 6 Walk 150 ft (QC): 6 PT Plan Problem List Problem List: Activity Tolerance, Functional Strength, Safety, Balance, Gait, Transfer, Bed Mobility, ROM Treatment/Plan Treatment Plan: Continue Plan of Care Treatment Plan: Bed Mobility, Education, Functional Activity Roberth, Functional Strength, Gait, Safety, Therapeutic Exercise, Transfers Treatment Duration: Jan 24, 2022 Frequency: 6 times per week Estimated Hrs Per Day: .25 hour per day Patient and/or Family Agrees t: Yes Safety Risks/Education Patient Education: Gait Training, Transfer Techniques, Correct Positioning, Safety Issues Teaching Recipient: Patient Teaching Methods: Demonstration, Discussion Response to Teaching: Reinforcement Needed Discharge Recommendations Plan Patient will perform bed mobility and transfer training, balance and endurance training, functional strengthening, stair training, gait training, and education, to improve functional mobility and independence at home. Therapy Discharge Recommendati: Home & Family, Post Acute PT Time/GCodes Time In: 1420 Time Out: 1445 Total Billed Treatment Time: 25 Total Billed Treatment 1 Visit EVmod 15 min FA 10 min DELICIA WATSON PT Jan 14, 2022 15:26
[2022-01-14 16:00] VITALS: BP 95/47
[2022-01-14 19:30] VITALS: BP 114/56
[2022-01-15 00:21] VITALS: BP 101/51
[2022-01-15 03:41] VITALS: BP 112/54
[2022-01-15 06:27] LABS: BASOPHILS # (AUTO) 0.1 10^3/uL (0.0-0.1)
[2022-01-15 06:29] LABS: BASOPHILS % (AUTO) 1 % (0-10); EOSINOPHILS # (AUTO) 0.1 10^3/uL (0.0-0.3); EOSINOPHILS % (AUTO) 1 % (0-10); HEMATOCRIT 28 % (40-54); HEMOGLOBIN 9.4 g/dL (13.3-17.7); LYMPHOCYTES % (AUTO) 13 % (12-44); MEAN CORPUSCULAR HEMOGLOBIN 31 pg (25-34); MEAN CORPUSCULAR HGB CONC 33 g/dL (32-36); MEAN CORPUSCULAR VOLUME 94 fL (80-99); MEAN PLATELET VOLUME 10.5 fL (9.0-12.2); MONOCYTES # (AUTO) 1.1 10^3/uL (0.0-1.0); MONOCYTES % (AUTO) 13 % (0-12); NEUTROPHILS # (AUTO) 5.6 10^3/uL (1.8-7.8); NEUTROPHILS % (AUTO) 71 % (42-75); PLATELET COUNT 71 10^3/uL (130-400); WHITE BLOOD COUNT 7.9 10^3/uL (4.3-11.0)
[2022-01-15 06:33] LABS: ALBUMIN 2.4 GM/DL (3.2-4.5); POTASSIUM 3.6 MMOL/L (3.6-5.0)
[2022-01-15 06:34] LABS: CALCIUM 7.4 MG/DL (8.5-10.1)
[2022-01-15 06:36] LABS: TOTAL PROTEIN 6.9 GM/DL (6.4-8.2)
[2022-01-15 06:37] LABS: BILIRUBIN,TOTAL 3.5 MG/DL (0.1-1.0)
[2022-01-15 06:39] LABS: CREATININE SERUM 0.83 MG/DL (0.60-1.30)
--- NOTE | 2022-01-15 06:46 | Progress Note - Surgery ---
Subjective Date Seen by a Provider: Jan 15, 2022 Time Seen by a Provider: 06:35 Subjective/Events-last exam Patient reports continued abdominal pain for which he is not able to rate on a 0-10 scale. States the pain is better than yesterday. Denies nausea, vomiting, chest pain, fevers, and headaches. Reports feeling SOB over night increasing this am. Reports he normally takes lasix at home multiple times per day for swelling related to his cirrhosis. Also complains of wheezing which is audible without a stethoscope. Tolerating po intake well. Having BM's and voiding without difficulty. Review of Systems General: No Chills, No Night Sweats HEENT: No Head Aches, No Visual Changes Pulmonary: Dyspnea; No Cough, No Pleuritic Chest Pain Cardiovascular: No: Chest Pain, Palpitations, Orthopnea, Lt Headedness Gastrointestinal: Abdominal Pain; No: Nausea, Vomiting, Constipation Genitourinary: No Dysuria, No Frequency Musculoskeletal: arm pain (reports bilateral arm pain today related to poor positioning in bed); No: neck pain, back pain Neurological: No: Weakness, Numbness, Change in speech, Confusion Objective Exam Vital Signs Date Time Temp Pulse Resp B/P (MAP) Pulse Ox O2 Delivery O2 Flow Rate FiO2 01/15/22 03:41 37.8 111 20 112/54 (73) 92 Room Air 01/15/22 00:21 37.6 100 20 101/51 (68) 92 Nasal Cannula 2.00 01/14/22 21:14 Nasal Cannula 2.00 01/14/22 20:31 Nasal Cannula 2.00 01/14/22 19:30 36.9 104 18 114/56 (75) 93 Nasal Cannula 2.00 01/14/22 16:00 36.8 103 20 95/47 (63) 94 Nasal Cannula 2.00 01/14/22 12:18 38.0 105 20 126/71 (89) 92 Nasal Cannula 2.00 01/14/22 08:16 37.3 106 18 126/68 (87) 94 Nasal Cannula 3.00 I & O 01/15/22 07:00 Intake Total 1020 ml Output Total 250 ml Balance 770 ml Capillary Refill : Less Than 3 Seconds General Appearance: Anxious, Chronically ill, Obese HEENT: PERRL/EOMI, Moist Mucous Membranes, Scleral Icterus (L), Scleral Icterus (R) Neck: Normal Inspection, Non Tender Respiratory: Lungs Clear, No Accessory Muscle Use, No Respiratory Distress; No Crackles; Decreased Breath Sounds; No Rales; Wheezing (audible throuhgout all wisdom) Cardiovascular: Regular Rate, Rhythm, Normal Peripheral Pulses Peripheral Pulses: 2+ Dorsalis Pedis (R), 2+ Left Dors-Pedis (L), 2+ Radial Pulses (R), 2+ Radial Pulses (L) Gastrointestinal: normal bowel sounds, distended (minimal), tenderness (incisional, serous drainage) Extremity: Normal Capillary Refill, Normal Inspection, Normal Range of Motion, Non Tender, No Calf Tenderness, No Pedal Edema Neurologic/Psychiatric: Alert, Oriented x3, No Motor/Sensory Deficits, technician support engineer II- XII Norm as Tested Skin: Normal Color, Warm/Dry, Tattoos/Piercings, Other (scattered sores over body. Abdominal incisions dressings C/D/I, minimal shadowing to midline dressing. ) Lymphatic: No Adenopathy Results Lab Laboratory Tests 01/15/22 05:55: White Blood Count 7.9, Red Blood Count 3.00L, Hemoglobin 9.4L, Hematocrit 28L, Mean Corpuscular Volume 94, Mean Corpuscular Hemoglobin 31, Mean Corpuscular Hemoglobin Concent 33, Red Cell Distribution Width 17.8H, Platelet Count 71L, Me an Platelet Volume 10.5, Immature Granulocyte % (Auto) 1, Neutrophils (%) (Auto) 71, Lymphocytes (%) (Auto) 13, Monocytes (%) (Auto) 13H, Eosinophils (%) (Auto) 1, Basophils (%) (Auto) 1, Neutrophils # (Auto) 5.6, Lymphocytes # (Auto) 1.0, Monocytes # (Auto) 1.1H, Eosinophils # (Auto) 0.1, Basophils # (Auto) 0.1, Immature Granulocyte # (Auto) 0.1, Percent Immature Platelet Fraction 2.4, Sodium Level 129L, Potassium Level 3.6, Chloride Level 100, Carbon Dioxide Level 21, Anion Gap 8, Creatinine 0.83, Estimat Glomerular Filtration Rate 109, Glucose Level 102, Calcium Level 7.4L, Corrected Calcium 8.7, Total Bilirubin 3.5H, Alkaline Phosphatase 134, Total Protein 6.9, Albumin 2.4L Microbiology 01/13/22 MRSA Screen - Final, Complete MRSA not isolated Assessment/Plan Assessment/Plan Assessment/Plan S/P Diagnostic laparoscopy with repair of incarcerated umbilical hernia POD #2 Shortness of Breath cirrhosis mild hyponatremia Hyperbilirubinemia Anemia Thrombocytopenia EtOH use Tobacco use Add albuterol nebs for wheezing and SOB Add lasix, patient takes lasix at home normally multiple times daily for chronic swelling General diet as tolerated wean 02 as tolerated/splint abdomen with pillow when coughing/repositioning Cough and deep breathe q1hr WA IS 5-10 times q1hr WA IVF's D/C'd Encourage ambulation TID and up to chair Hgb trending down, continue to monitor Plan to discharge to home today JAN SHARIF MED STUDENT Jan 15, 2022 06:46
[2022-01-15] MEDS ORDERED: MULTIVIT W/MINERALS TAB (THERAGRAN M) PO SCH (07:00)
[2022-01-15 07:59] VITALS: BP 116/56
--- NOTE | 2022-01-15 11:07 | Physical Therapy Daily Note ---
PT Daily Note-Current Subjective Patient presents laying in bed and agrees to get up and walk with therapy. Mental Status Patient Orientation: Person, Place, Time, Situation Attachments: Oxygen (2L NC) Transfers SCALE: Activities may be completed with or without assistive devices. 5-Rgpnrjckmo-[id number] completes the activity by him/herself with no assistance from a helper. 5-Set-up or Clean-up Assistance-helper sets up or cleans up; patient completes activity. Irmo assists only prior to or following the activity. 4-Supervision or Touching Assistance-helper provides verbal cues and/or touching/steadying and/or contact guard assistance as patient completes activity. Assistance may be provided throughout the activity or intermittently. 3-Partial/Moderate Assistance-helper does LESS THAN HALF the effort. Irmo lifts, holds or supports trunk or limbs, but provides less than half the effort. 2-Substantial/Maximal Assistance-helper does MORE THAN HALF the effort. Irmo lifts or holds trunk or limbs and provides more than half the effort. 0-Nfkatzsht-[id number] does ALL the effort. Patient does none of the effort to complete the activity. Or, the assistance of 2 or more helpers is required for the patient to complete the activity. If activity was not attempted, code reason: 7-Patient Refused. 9-Not Applicable-not attempted and the patient did not perform the activity before the current illness, exacerbation or injury. 10-Not Attempted due to Environmental Limitations-(lack of equipment, weather restraints, etc.). 88-Not Attempted due to Medical Conditions or Safety Concerns. Sit to Lying (QC): 6 Lying to Sitting/Side of Bed(Q: 6 Sit to Stand (QC): 6 Patient performed bed mobility and transfers independently. Gait Training Does the Patient Walk?: Yes Distance: 300' Walk 10 feet (QC): 6 Walk 50 ft with 2 Turns(QC): 6 Walk 150 ft (QC): 6 Gait Assistive Device: None Patient ambulated 300' independently without an AD. Assessment Patient ambulated and performed bed mobility with physical therapy. Patient is being d/c from therapy due to independence with ambulation and transfers. PT Residential Property Tax Appraiser Goals Residential Property Tax Appraiser Goals PT Assisted Goals Time Frame: Jan 24, 2022 Roll Left & Right (QC): 6 Sit to Lying (QC): 6 Lying-Sitting on Side/Bed(QC): 6 Sit to Stand (QC): 6 Chair/[id number]-Gszrt Xfer(QC): 6 Toilet Transfer (QC): 6 Does the Patient Walk: Yes Walk 10 feet (QC): 6 Walk 50ft with 2 Turns (QC): 6 Walk 150 ft (QC): 6 PT Plan Treatment/Plan Treatment Plan: Discontinue PT, goals met Treatment Plan: Bed Mobility, Education, Functional Activity Roberth, Functional Strength, Gait, Safety, Therapeutic Exercise, Transfers Treatment Duration: Jan 24, 2022 Frequency: 6 times per week Estimated Hrs Per Day: .25 hour per day Patient and/or Family Agrees t: Yes Time/GCodes Time In: 1032 Time Out: 1040 Total Billed Treatment Time: 8 Total Billed Treatment 1 Visit FA 8 min IRWIN LANTIGUA PT Jan 15, 2022 11:07
[2022-01-15 12:09] VITALS: BP 120/58
[2022-01-15] MEDS ORDERED: OXC5T PO (17:13)
== END 2022-01-15 15:45 | disposition home or self-care (01) | DRG 354 ==
LOC: EDUNIT# 06:13 → ER 06:17 → SDC 12:18 → OBSVTOIN 14:02 → 4TH 14:02
PROVIDERS: ADMIT Surgery; ATTEND Surgery
PROC: 8E0ZXY6 Isolation (ICD-10-PCS; 2022-01-13)
PROC: 0WQF4ZZ Repair Abdominal Wall, Percutaneous Endoscopic Approach (ICD-10-PCS; principal; 2022-01-14)
DX: K42.0 Umbilical hernia with obstruction, without gangrene (principal); K76.6 Portal hypertension; E87.1 Hypo-osmolality and hyponatremia; K70.31 Alcoholic cirrhosis of liver with ascites; D69.6 Thrombocytopenia, unspecified; E83.42 Hypomagnesemia; Z72.89 Other problems related to lifestyle; K59.00 Constipation, unspecified; I10 Essential (primary) hypertension; D64.9 Anemia, unspecified; F41.9 Anxiety disorder, unspecified; G47.30 Sleep apnea, unspecified; F17.200 Nicotine dependence, unspecified, uncomplicated; Z88.6 Allergy status to analgesic agent
CPT/HCPCS: 36415; 71045; 74177; 80053; 80320; 81000; 82140; 82947; 82977; 83690; 83735; 85007; 85025; 85027; 85610; 86141; 87081